=== PATIENT | female | born 1940 | race Caucasian/White ===

== ENCOUNTER → 2017-01-02 | Outpatient (CLI) | payer MEDICARE ==
--- NOTE | 2017-01-02 15:37 | XR ---
EXAMINATION TYPE: XR chest 2V DATE OF EXAM: 01/02/2017 COMPARISON: NONE HISTORY: Pleurodynia per order. Shortness of breath and back pain. TECHNIQUE: Frontal and lateral views of the chest are obtained. FINDINGS: There is no focal air space opacity, pleural effusion, or pneumothorax seen. The cardiac silhouette size is enlarged. Degenerative change left shoulder is present.. Cholecystectomy clips are noted. IMPRESSION: Cardiomegaly without acute pulmonary process.
== END | disposition home or self-care (01) ==
LOC: RADXRMAIN 15:05
PROVIDERS: ATTEND Physician Assistant
DX: I51.7 Cardiomegaly (principal); R07.81 Pleurodynia
CPT/HCPCS: 71020

== ENCOUNTER → 2017-08-27 | Outpatient (CLI) | payer MEDICARE ==
--- NOTE | 2017-09-10 08:10 | MM ---
Reason for exam: history of breast cancer, conservation therapy. History: Patient is postmenopausal and has history of breast cancer at age 65. Lumpectomy of the left breast, 2009. Lumpectomy of the left breast, 2005. Took hormonal contraceptives for 2 years. Took estrogen for 20 years beginning at age 42. Physical Findings: Nurse did not find any significant physical abnormalities on exam. MG 3D Diag Mammo W/Cad KERRI Bilateral CC and MLO view(s) were taken. No prior studies available for comparison. The breast tissue is heterogeneously dense. This may lower the sensitivity of mammography. Right 9-10 o'clock focal asymmetry anterior to middle depth. Ovoid focal asymmetry 2 o'clock posteriorly. Post surgical and post therapy changes in the left breast. These results were verbally communicated on 09/10/17. ASSESSMENT: Incomplete: need additional imaging evaluation, BI-RAD 0 RECOMMENDATION: Special view mammogram of the right breast.
== END | disposition home or self-care (01) ==
LOC: RADMAMWWP 14:08
PROVIDERS: ATTEND Family Medicine
DX: Z08 Encounter for follow-up examination after completed treatment for malignant neoplasm (principal); Z85.3 Personal history of malignant neoplasm of breast
CPT/HCPCS: 77066; G0279; 77062

== ENCOUNTER → 2017-09-18 | Outpatient (CLI) | payer MEDICARE ==
--- NOTE | 2017-09-19 08:19 | MM ---
Reason for exam: additional evaluation requested from abnormal screening. Last mammogram was performed 1 month ago. History: Patient is postmenopausal and has history of breast cancer at age 65. Lumpectomy of the left breast, 2008. Lumpectomy of the left breast, 2005. Took hormonal contraceptives for 2 years. Took estrogen for 20 years beginning at age 42. Physical Findings: Nurse did not find any significant physical abnormalities on exam. MG 3D Work Up W/Cad RT Spot compression CC, spot compression MLO, and ML view(s) were taken of the right breast. Prior study comparison: August 27, 2017, bilateral MG 3d diag mammo w/cad KERRI. The breast tissue is heterogeneously dense. This may lower the sensitivity of mammography. Finding: There is a 7 mm circumscribed oval mass in the upper outer quadrant, anterior middle position of the right breast. These results were verbally communicated with the patient and result sheet given to the patient on 09/18/17. ASSESSMENT: Incomplete: need additional imaging evaluation, BI-RAD 0 RECOMMENDATION: Ultrasound of the right breast.
--- NOTE | 2017-09-19 08:21 | USB ---
Reason for exam: additional evaluation requested from abnormal screening. History: Patient is postmenopausal and has history of breast cancer at age 65. Lumpectomy of the left breast, 2008. Lumpectomy of the left breast, 2005. Took hormonal contraceptives for 2 years. Took estrogen for 20 years beginning at age 42. US Breast Workup Limited RT Right limited breast ultrasound including focal area of concern, retroareolar and axilla demonstrates a 0.7 x 0.9 x 0.3cm oval, cystic cluster at 8 o'clock and a 0.6 x 0.3 x 0.4cm oval, mixed lesion at 9 o'clock. These results were verbally communicated with the patient and result sheet given to the patient on 09/18/17. ASSESSMENT: Probably benign, BI-RAD 3 RECOMMENDATION: Follow-up diagnostic mammogram and ultrasound of the right breast in 6 months.
== END | disposition home or self-care (01) ==
LOC: RADMAMWWP 13:43
PROVIDERS: ATTEND Family Medicine
DX: R92.8 Other abnormal and inconclusive findings on diagnostic imaging of breast (principal)
CPT/HCPCS: 77065; 76642; G0279; 77061

== ENCOUNTER 2017-10-01 06:44 | Day surgery (SDC) | payer MEDICARE ==
[2017-09-12 14:30] VITALS: BMI 37.8
[~2017-10-01 06:44] MED LIST: DEXAMETHASONE SOD PHOSPHATE 10 MG/ML 1 ML VIAL IV ONE; LACTATED RINGERS 1,000 ML IV SCH; ONDANSETRON 4 MG/2 ML VIAL IVP ONE; Pre Op ABX Message 1 EACH MISC MISCELLANE ONE
[2017-10-01] MEDS ORDERED: ceFAZolin IN SWFI 2 GM/20 ML SYRINGE IVP STA (07:25)
[2017-10-01] MEDS ORDERED: fentaNYL (PF) 50 MCG/ML 2 ML AMP ONE (07:40)
[2017-10-01] MEDS ORDERED: MIDAZOLAM 2 MG/2 ML VIAL ONE (07:40)
[2017-10-01] MEDS ORDERED: SUCCINYLCHOLINE CHLORIDE 100 MG/5 ML SYR IV ONE (07:40)
[2017-10-01] MEDS ORDERED: PROPOFOL 10 MG/ML 20 ML VIAL IV ONE (07:40)
[2017-10-01] MEDS ORDERED: LIDOCAINE 1% INJ 10MG/ML (20 ML MDV) ONE (07:40)
[2017-10-01] MEDS ORDERED: SODIUM CHLORIDE 0.9% 50 ML with ceFAZolin 2,000 MG IV ONE ×2 (07:51)
[2017-10-01 09:15] VITALS: TEMP 97
[2017-10-01] MEDS: HYDROmorphone 0.5 MG/0.5 ML SYRINGE IVP PRN ×3 (09:17→09:41)
[2017-10-01 09:44] VITALS: RESP 16
[2017-10-01 10:49] VITALS: PULSE 58
[2017-10-01 11:29] VITALS: BP 137/78
--- NOTE | 2017-10-01 16:13 | OP ---
OPERATIVE REPORT DATE OF SURGERY: October 01, 2017. SURGEON: Timbo Aparicio. PREOPERATIVE DIAGNOSES: 1. Acquired deformity, left breast. 2. Personal history of breast cancer, left breast. 3. Personal history of partial mastectomy, left breast. POSTOPERATIVE DIAGNOSES: 1. Acquired deformity, left breast. 2. Personal history of breast cancer, left breast. 3. Personal history of partial mastectomy, left breast. OPERATIVE PROCEDURE: 1. Delayed reconstruction left breast with insertion of tissue kingsbury machine operator, subsequent outpatient expansion. 2. Implantation of reconstructive graft for left breast reconstruction. OPERATIVE INDICATIONS: Patient is a 77-year-old female who has undergone a partial mastectomy, axillary node dissection and radiation therapy for treatment of left breast cancer. The patient has been dissatisfied with her post treatment result due to the significant deformity she sustained involving the left breast with contour irregularities and significant loss of volume compared to the contralateral side. She is referred to my care for breast reconstruction and has elected to proceed with the tissue kingsbury machine operator technique. The patient understands the potential risks and complications related to the surgery including concerns about wound healing related to her past radiation treatments. She has requested I proceed with the surgery. OPERATIVE PROCEDURE SUMMARY: The patient is seen presurgical area markings made. Procedure reviewed. All questions answered. She was transported to the operating room where she was placed in supine position. Following induction general tracheal anesthesia, the patient is prepped and draped in the usual fashion. The patient's left-sided partial mastectomy scar was identified and marked and was oriented transversely. The incision was then made following diagram placed, dividing skin full-thickness fashion followed by use of cauterization of subcutaneous tissue until identifying the pectorals major muscle surface. Skin subcutaneous tissue and breast parenchyma flaps were dissected off the pectorals major muscle, small amount to identify the muscle fibers direction of their travel. The incision is made through the pectorals major muscle fibers at this point in the inner diagonal direction to gain access to the deep space between the pectorals major and minor muscles which was bluntly developed to a degree and also dissected with cauterization. A large component muscle flap was now elevated consisting of pectorals major muscle, the rectus abdominis muscle, external abdominal oblique muscle and serrated anterior muscle. This flap was dissected with cautery. Once sufficiently sized, the site was irrigated. Hemostasis maintained with cautery. Measurement was obtained. Gloves now changed and the tissue kingsbury machine operator opened on the field from the [employer]. [id number], serial #[id number]. The kingsbury machine operator was rated for 375 mL in volume. All air is extracted, 50 mL 0.9 normal saline instilled is inserted in the reconstructive cavity under direct vision and orientation also assured under direct vision. Additional 50 mL 0.9 normal saline instilled into the device. This optimally filled the space. The muscle flap tissue could not be directly reapproximated due to tension. Therefore SurgiMend reconstructive graft was opened on the field. The SurgiMend measured 10 x 15 cm was thin and fenestrated. Once we vitalized in room temperature saline, the SurgiMend was then inserted in reconstructive field, placed deep to the muscle flap tissue but superficial to the kingsbury machine operator and sutured in place to the muscle flap tissue using interrupted 3-0 Vicryl sutures. Complete coverage of the kingsbury machine operator was now obtained. Irrigation was performed. A 15 round drain inserted in the surgical field above the muscle flap and SurgiMend tissue and brought separate stab incision left anterior lateral chest wall. Drain sutured in place with 2-0 Prolene and cut to appropriate length. The incision was now closed approximating the deep dermis using inverted interrupted 4-0 Monocryl followed by closures of the skin in a single layer using interrupted mackenzie. Surgical sanz is cleansed with saline, dried and postop bandages placed using 4x4s, secured with 3-0 Medipore tape. The drain was connected to close bulb suction patent. The patient is awakened from anesthetic, extubated, and transferred to the recovery room in good condition. Stable vital signs. There were no complications. ESTIMATED BLOOD LOSS: 25 mL MMODL / IJN: [id number] /
== END 2017-10-01 13:00 | disposition home or self-care (01) ==
LOC: OR 06:44
PROVIDERS: ATTEND Plastic Surgery
DX: Z42.1 Encounter for breast reconstruction following mastectomy (principal); N64.89 Other specified disorders of breast; Z85.3 Personal history of malignant neoplasm of breast; Z90.12 Acquired absence of left breast and nipple; Z92.3 Personal history of irradiation; K21.9 Gastro-esophageal reflux disease without esophagitis; I10 Essential (primary) hypertension; M79.7 Fibromyalgia; Z96.641 Presence of right artificial hip joint; Z79.899 Other long term (current) drug therapy; Z88.1 Allergy status to other antibiotic agents; Z91.048 Other nonmedicinal substance allergy status; Z87.891 Personal history of nicotine dependence
CPT/HCPCS: 19357; 15777; C1763; J2250; J2405; J2001; J3010; J0690 ×2; J0330; J2704; J1170

== ENCOUNTER → 2017-11-21 | Outpatient (CLI) | payer MEDICARE ==
--- NOTE | 2017-11-21 17:00 | XR ---
EXAMINATION TYPE: XR chest 2V DATE OF EXAM: 11/21/2017 COMPARISON: 01/02/2017 HISTORY: 77-year-old female shortness of breath, fatigue TECHNIQUE: Frontal and lateral views FINDINGS: Heart upper limits of normal in size. Mild elongation thoracic aorta. No consolidation or pleural eff usion. A left breast device is present. IMPRESSION: Left breast device. No acute cardiopulmonary process.
== END | disposition home or self-care (01) ==
LOC: RADXRMAIN 13:16
PROVIDERS: ATTEND Physician Assistant
DX: R53.83 Other fatigue (principal)
CPT/HCPCS: 71046

== ENCOUNTER 2017-12-20 18:53 | Emergency (ER) | payer MEDICARE ==
--- NOTE | 2017-12-20 18:45 | US ---
EXAMINATION TYPE: US venous doppler duplex LE DATE OF EXAM: 12/20/2017 6:34 PM COMPARISON: NONE CLINICAL HISTORY: R60.0 Edema. bilat edema, worse on the left SIDE PERFORMED: Bilateral TECHNIQUE: The lower extremity deep venous system is examined utilizing real time linear array sonog heraclio with graded compression, doppler sonography and color-flow sonography. VESSELS IMAGED: External Iliac Vein (EIV) Common Femoral Vein Deep Femoral Vein Greater Saphenous Vein * Femoral Vein Popliteal Vein Small Saphenous Vein * Proximal Calf Veins (* superficial vessels) Right Leg: Appears negative for DVT Left Leg: Popiteal vein does not fully compress and minimal flow seen around internal debris along w ith calf veins office is closed with no emergency option on their voice mail IMPRESSION: No evidence of deep venous thrombosis in the right leg. 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
[2017-12-20 20:43] VITALS: RESP 16
[2017-12-20] MEDS ORDERED: cloNIDine HCL 0.2 MG TAB PO STA (20:43)
[2017-12-20] MEDS ORDERED: APIXABAN 5 MG TAB PO STA (20:43)
--- NOTE | 2017-12-20 20:48 | ED ---
General Adult HPI - General Chief complaint: Extremity Injury, Lower Stated complaint: POSS BLOODCLOT LEFT LEG Time Seen by Provider: 12/20/17 20:42 Source: patient, RN notes reviewed, old records reviewed Mode of arrival: ambulatory Limitations: no limitations - History of Present Illness Initial comments: This is a 77-year-old female the ER for evaluation. Patient sent to ER for evaluation of outpatient ultrasound. Patient recent long travel history following surgery. She is complaining of left leg pain, per ultrasound and radiology patient does have positive DVT. Patient has no prior history of DVT, denies chest pain or shortness of breath. No other injuries noted - Related Data Home Medications Medication Instructions Recorded Confirmed Metoprolol Tartrate [Lopressor] 100 mg PO HS 09/12/17 12/20/17 Cholecalciferol (Vitamin D3) 2,000 unit PO HS 12/20/17 12/20/17 [Vitamin D3] Zolpidem [Ambien] 10 mg PO HS 12/20/17 12/20/17 Previous Rx's Medication Instructions Recorded Apixaban [Eliquis] 5 mg PO BID #28 tab 12/20/17 Apixaban [Eliquis] 5 mg PO BID #60 tablet 12/20/17 Allergies Allergy/AdvReac Type Severity Reaction Status Date / Time adhesive tape AdvReac Unknown Red Verified 12/20/17 19:42 Irritated Skin clindamycin AdvReac Unknown HEART BURN Verified 12/20/17 19:42 erythromycin base AdvReac Unknown HEART BURN Verified 12/20/17 19:42 Review of Systems ROS Statement: Those systems with pertinent positive or pertinent negative responses have been documented in the HPI. ROS Other: All systems not noted in ROS Statement are negative. Past Medical History Past Medical History: Cancer, Hypertension, Osteoarthritis (OA) Additional Past Medical History / Comment(s): HX OF STONE IN PANCREAS, ARTHRITIS WITH BACK PAIN, BREAST CANCER (2008 WITH PARTIAL MASTECTOMY & RADIATION [place]), STRESS INCONTINENCE- WEARS PADS., SURGERY WAS RESCHEDULED DUE TO CARDIAC CLEARANCE NEEDED. History of Any Multi-Drug Resistant Organisms: None Reported Past Surgical History: Breast Surgery, Cholecystectomy, Joint Replacement Additional Past Surgical History / Comment(s): LUMPECTOMY X2, PARTIAL LEFT MASTECTOMY, RIGHT TOTAL HIP. Past Anesthesia/Blood Transfusion Reactions: Previous Problems w/ Anesthesia Additional Past Anesthesia/Blood Transfusion Reaction / Comment(s): STATES BLOOD PRESSURE LOW AFTER HIP SURGERY. Past Psychological History: No Psychological Hx Reported Smoking Status: Former smoker Past Alcohol Use History: Occasional Past Drug Use History: None Reported - Past Family History Mother Family Medical History: Cancer Additional Family Medical History / Comment(s): LUNG CANCER General Exam - General Exam Comments Initial Comments: (Extremity with edema and tenderness Limitations: no limitations General appearance: alert, in no apparent distress Head exam: Present: atraumatic, normocephalic, normal inspection Eye exam: Present: normal appearance, PERRL, EOMI. Absent: scleral icterus, conjunctival injection, periorbital swelling ENT exam: Present: normal exam, mucous membranes moist Neck exam: Present: normal inspection. Absent: tenderness, meningismus, lymphadenopathy Respiratory exam: Present: normal lung sounds bilaterally. Absent: respiratory distress, wheezes, rales, rhonchi, stridor Cardiovascular Exam: Present: regular rate, normal rhythm, normal heart sounds. Absent: systolic murmur, diastolic murmur, rubs, gallop, clicks GI/Abdominal exam: Present: soft, normal bowel sounds. Absent: distended, tenderness, guarding, rebound, rigid Extremities exam: Present: normal inspection, full ROM, normal capillary refill. Absent: tenderness, pedal edema, joint swelling, calf tenderness Back exam: Present: normal inspection Neurological exam: Present: alert, oriented X3, CN II-XII intact Psychiatric exam: Present: normal affect, normal mood Skin exam: Present: warm, dry, intact, normal color. Absent: rash Course Vital Signs 12/20/17 12/20/17 12/20/17 18:55 20:39 22:01 Temperature 98.5 F 97.6 F Pulse Rate 61 63 65 Respiratory 18 16 16 Rate Blood Pressure 181/99 202/98 198/88 O2 Sat by Pulse 95 98 97 Oximetry - Reevaluation(s) Reevaluation #1: Patient denies any chest pain or shortness of breath, medical record is reviewed ultrasound is reviewed showing positive DVT Medical Decision Making - Medical Decision Making 77 female the ER for positive DVT. Patient placed on oral anticoagulation and will be discharged to follow-up with primary care - Radiology Data Radiology results: report reviewed (Ultrasound positive for DVT), image reviewed Disposition Clinical Impression: DVT (deep venous thrombosis), Hypertension Disposition: HOME SELF-CARE Condition: Good Instructions: Deep Vein Thrombosis (ED) Prescriptions: Apixaban [Eliquis] 5 mg PO BID #28 tab Apixaban [Eliquis] 5 mg PO BID #60 tablet Is patient prescribed a controlled substance at d/c from ED?: No Referrals: Betito Deleon MD [Primary Care Provider] - 1-2 days
[2017-12-20 22:03] VITALS: BP 198/88; PULSE 65; TEMP 97.6
== END 2017-12-20 22:00 | disposition home or self-care (01) ==
LOC: EC 18:53
DX: I82.532 Chronic embolism and thrombosis of left popliteal vein (principal); I10 Essential (primary) hypertension; Z96.641 Presence of right artificial hip joint; Z87.891 Personal history of nicotine dependence; Z79.899 Other long term (current) drug therapy; Z91.048 Other nonmedicinal substance allergy status; Z88.1 Allergy status to other antibiotic agents; Z85.3 Personal history of malignant neoplasm of breast
CPT/HCPCS: 93970; 99284

== ENCOUNTER → 2018-01-02 | Outpatient (CLI) | payer MEDICARE ==
--- NOTE | 2018-01-02 14:10 | US ---
EXAMINATION TYPE: US venous doppler duplex LE BI DATE OF EXAM: 01/02/2018 1:44 PM COMPARISON: Prior bilateral venous ultrasound March 21, 2018 CLINICAL HISTORY: R60.0 Edema of Lower Ext. Leg swelling, prev DVT left leg, pt on blood thinners SIDE PERFORMED: Bilateral TECHNIQUE: The lower extremity deep venous system is examined utilizing real time linear array sonog heraclio with graded compression, doppler sonography and color-flow sonography. VESSELS IMAGED: External Iliac Vein (EIV) Common Femoral Vein Deep Femoral Vein Greater Saphenous Vein * Femoral Vein Popliteal Vein Small Saphenous Vein * Proximal Calf Veins (* superficial vessels) Right Leg: Negative for DVT Left Leg: Negative for acute DVT, possible small amount of chronic non-occluding thrombus within lef t popliteal vein, improvement from previous Grayscale, color doppler, spectral doppler imaging performed of the deep veins of the bilateral lower extremities. There is normal flow, compressibility, vascular waveforms in the right lower extremity remain present. IMPRESSION: Some residual chronic thrombus left popliteal vein remains present. No new or acute DVT is noted bilaterally.
== END | disposition home or self-care (01) ==
LOC: RADUSWWP 12:59
PROVIDERS: ATTEND Family Medicine
DX: I82.532 Chronic embolism and thrombosis of left popliteal vein (principal)
CPT/HCPCS: 93970

== ENCOUNTER → 2018-03-20 | Outpatient (CLI) | payer MEDICARE ==
--- NOTE | 2018-03-20 14:31 | US ---
EXAMINATION TYPE: US venous doppler duplex LE LT DATE OF EXAM: 03/20/2018 2:15 PM COMPARISON: US 2018 CLINICAL HISTORY: I82.409 DVT. History of left leg DVT 3 months ago, patient on blood thinners SIDE PERFORMED: Left TECHNIQUE: The lower extremity deep venous system is examined utilizing real time linear array sonog heraclio with graded compression, doppler sonography and color-flow sonography. VESSELS IMAGED: External Iliac Vein (EIV) Common Femoral Vein Deep Femoral Vein Greater Saphenous Vein * Femoral Vein Popliteal Vein Small Saphenous Vein * Proximal Calf Veins (* superficial vessels) Left Leg: Appears negative for DVT IMPRESSION: No evidence for DVT at this time.
== END ==
LOC: RADUSWWP 13:55
PROVIDERS: ATTEND Family Medicine
DX: I82.409 Acute embolism and thrombosis of unspecified deep veins of unspecified lower extremity (principal)

== ENCOUNTER 2018-08-12 09:17 | Day surgery (SDC) | payer MEDICARE ==
[2018-08-07 14:49] VITALS: BMI 38.0
[~2018-08-12 09:17] MED LIST changes: +LIDOCAINE 1% 20 ML VIAL (10MG/ML) FOR IV START INTRADERMA PRN; +MIDAZOLAM 2 MG/2 ML VIAL IV PRN; +SCOPOLAMINE 1.5MG/72HR PATCH TRANSDERM ONE
[2018-08-12 10:27] VITALS: RESP 16
[2018-08-12] MEDS ORDERED: ceFAZolin IN SWFI 2 GM/20 ML SYRINGE IVP ONE (10:48)
[2018-08-12] MEDS ORDERED: fentaNYL (PF) 50 MCG/ML 2 ML AMP ONE (11:29)
[2018-08-12] MEDS ORDERED: KETOROLAC 30 MG/ML 1 ML VIAL ONE (11:29)
[2018-08-12] MEDS ORDERED: ePHEDrine SULFATE/0.9% NACL/PF 50 MG/5 ML SYRINGE IV ONE (11:29)
[2018-08-12] MEDS ORDERED: PROPOFOL 10 MG/ML 20 ML VIAL IV ONE (11:29)
[2018-08-12] MEDS ORDERED: MIDAZOLAM 2 MG/2 ML VIAL ONE (11:29)
[2018-08-12] MEDS ORDERED: LIDOCAINE 1% INJ 10MG/ML (20 ML MDV) ONE (11:29)
[2018-08-12] MEDS ORDERED: HYDROmorphone (PF) 1 MG/ML ONE (11:29)
[2018-08-12] MEDS ORDERED: ROCURONIUM BROMIDE 10 MG/ML 10 ML VIAL IV ONE (11:29)
[2018-08-12] MEDS ORDERED: LACTATED RINGERS 1,000 ML IV ONE (12:57)
[2018-08-12 13:05] VITALS: TEMP 97
[2018-08-12] MEDS: HYDROmorphone 0.5 MG/0.5 ML SYRINGE IVP PRN ×2 (13:15→13:32)
[2018-08-12 14:53] VITALS: BP 123/84; PULSE 61
--- NOTE | 2018-08-12 19:57 | OP ---
OPERATIVE REPORT DATE OF SURGERY: 08/12/2018. SURGEON: Dr. Timbo Aparicio PREOPERATIVE DIAGNOSES: 1. Acquired deformity, left reconstructed breast. 2. Acquired loss, left breast inframammary fold. 3. Personal history of breast cancer, left breast. 4. Personal history of partial mastectomy, left breast. POSTOPERATIVE DIAGNOSES: 1. Acquired deformity, left reconstructed breast. 2. Acquired loss, left breast inframammary fold. 3. Personal history of breast cancer, left breast. 4. Personal history of partial mastectomy, left breast. OPERATIVE PROCEDURES: 1. Replacement of left breast tissue sausage smoker with silicone breast implant for left breast reconstruction. 2. Revision left reconstructed breast. 3. Reconstruction of left breast inframammary fold via local advancement flap, 42 square cm. 4. Implantation of reconstructive graft for left breast reconstruction. OPERATIVE INDICATIONS: This patient is a 78-year-old female who has undergone partial mastectomy and axillary node dissection and radiation therapy for treatment of breast cancer years ago. The patient developed progressive deformity of the left reconstructed breast and was referred to my care. She was taken to surgery, where a tissue sausage smoker was placed, and completed subsequent outpatient expansion and then traveled to [place] for this past winter. She has subsequently returned from living in [place] and desires to proceed with further reconstructive surgery, left breast, which will include replacement of her tissue sausage smoker and silicone breast implant, revision of the reconstructed breast due to significant scar deformity and contour irregularities distorting the shape of the breast as well as reconstruction of loss of the left inframammary fold. She understands there are potential risks and complications with the surgery and that outcomes cannot be guaranteed, and she may require future surgery. She has requested I perform the surgery. OPERATIVE PROCEDURE SUMMARY: The patient was seen in the presurgical area, markings made, procedure reviewed, all questions answered. She was transported to the operating room, where she was placed in supine position. Following induction of general endotracheal anesthesia, the patient was prepped and draped in usual fashion. The left breast scar had significant distortion of the breast and was marked where the prior mastectomy incision had been made. The incision was then made with a 10 blade scalpel dividing skin in full- thickness fashion followed by the use of cauterization to divide subcutaneous tissue, identifying the muscle flap layer underneath, and this area of the layer was attenuating quite thin. It was not possible to separate this layer from the patient's subcutaneous tissue layer. Therefore, incision was made through this layer exposing the sausage smoker. The sausage smoker was removed intact. The expansion cavity appeared normal, with serous fluid. No granulation tissue. No exudates. The expansion capsular scar was thick and hypertrophic along the inferolateral, lateral and superior portions, less so along the anteromedial and inferomedial regions. The capsular scar was divided where the capsule joined the chest wall circumferentially, and then multiple cruciate incisions were made through the capsular structure anteriorly, medially, superiorly and laterally and also inferolaterally through the inferior capsulotomy scar. Skin and subcutaneous tissue flap was developed for reconstruction of the inframammary fold. This flap measured 21 x 2 cm2. Once created, the flap was advanced in cephalad fashion and secured to the chest wall using several interrupted 2-0 Vicryl sutures to create a discrete inframammary fold in a symmetrical location to the patient's right side. Additional dissection was required in the area where the muscle flap could not be readily from the skin layer to further divide the scar tissue in a cruciate fashion to release the tightness of the structure so it could not re-form in the same manner. Once this was completed, irrigation was performed using a pulsatile irrigation unit of several liters of fluid. Hemostasis was maintained with cautery. Several temporary breast implant sizers were inserted in the reconstructive cavity and evaluated with the patient in a seated-up position. Ultimately a 325 mL breast implant sizer appeared best. The sizer was removed. Cavities were irrigated. Hemostasis was excellent. It was clear that reconstructive graft material would be required to optimize the patient's reconstruction due to the attenuation of the muscle flap that had been divided, as described previously. SurgiMend measuring 10 x 15 cm, thin and fenestrated, was opened on the field and revitalized in room-temperature saline. The SurgiMend was sutured in a modified inferolateral sling location, securing just to the cephalad portion of the advanced inframammary fold flap and also to the patient's chest wall to provide an inferolateral sling. Gloves were changed. Breast implant was opened on the field from the [employer], reference #[id number], serial #[id number]. Device measured 325 mL, moderate plus profile. The device was only handled by the surgeon. I first irrigated it with saline, then inserted it directly into the reconstructive cavity. The SurgiMend was then advanced over the implant once in optimal position and the SurgiMend was then inset to the muscle flap tissue using interrupted 3-0 Vicryl sutures. Complete coverage of the implant was obtained. The skin incision was now closed approximating the deep dermis using inverted interrupted 4- 0 Monocryl followed by closure of superficial dermis and epidermis with running 5-0 Prolene. Surgical field was cleansed with saline and dried. Postoperative bandages were placed using sterile one-inch paper tape over suture repair, Kerlix squares followed by size 4 mammary support. The estimated blood loss was 25 mL. The patient was extubated in the operating room and transferred to the recovery room in good condition with stable vital signs. MMODL / IJN: [id number] /
== END 2018-08-12 16:32 | disposition home or self-care (01) ==
LOC: OR 09:17
PROVIDERS: ATTEND Plastic Surgery
DX: Z42.1 Encounter for breast reconstruction following mastectomy (principal); N65.0 Deformity of reconstructed breast; Z85.3 Personal history of malignant neoplasm of breast; Z90.12 Acquired absence of left breast and nipple; M19.90 Unspecified osteoarthritis, unspecified site; M79.7 Fibromyalgia; I10 Essential (primary) hypertension; K21.9 Gastro-esophageal reflux disease without esophagitis; Z79.899 Other long term (current) drug therapy; Z88.1 Allergy status to other antibiotic agents; Z91.048 Other nonmedicinal substance allergy status; Z90.710 Acquired absence of both cervix and uterus; Z87.891 Personal history of nicotine dependence
CPT/HCPCS: 84132; 19342; 14301; 15777; C1763; C1789; J2250; J1100; J2405; J2001; J3010; J1885; J1170 ×2; J2704; J0690

== ENCOUNTER 2018-09-01 23:28 | Emergency (ER) | payer MEDICARE ==
[2018-09-01 23:52] VITALS: BP 129/93; PULSE 67; RESP 17; TEMP 98.4
--- NOTE | 2018-09-02 01:39 | US ---
EXAM: US Duplex Right Lower Extremity Veins CLINICAL HISTORY: ITS.REASON US Reason: Pain/ swelling TECHNIQUE: Real-time duplex ultrasound scan of the right lower extremity veins integrating B-mode two-dimensional vascular structure, Doppler spectral analysis, color flow Doppler imaging and compression. COMPARISON: No relevant prior studies available. FINDINGS: Deep veins: No DVT in the visualized common femoral, femoral, proximal deep femoral or popliteal veins. The veins demonstrate normal color flow, are normally compressible, with normal phasic flow and/or augmentation response. Superficial veins: No thrombus in the visualized great saphenous vein. Soft tissues: No popliteal cyst. IMPRESSION: No DVT.
--- NOTE | 2018-09-02 02:21 | ED ---
Lower Extremity Injury HPI - General Source: patient Mode of arrival: ambulatory Limitations: no limitations <Shira Pineda - Last Filed: 09/02/18 04:04> <Lyubov Lewis - Last Filed: 09/02/18 06:19> - General Chief Complaint: Extremity Injury, Lower Stated Complaint: Rt foot swelling/pain, post op Time Seen by Provider: 09/02/18 01:36 - History of Present Illness Initial Comments: 78-year-old female patient who recently underwent bilateral mastectomy presents to the emergency department today for evaluation of right ankle and foot swelling and pain. Patient states this started earlier today. States she has increased pain with ambulation. States the pain is located along the right lateral foot. She denies any calf pain or tenderness. States she does have a history of DVT and is concerned she may have a blood clot. She did start Eliquis on Saturday. She denies any fever or chills. Denies any numbness or tingling to the foot. Denies any known injury. Patient denies any headache, neck pain, back pain, chest pain, shortness of breath, dizziness, weakness, abdominal pain, nausea, vomiting, or difficulties with bowel movements or urination. (Shira Pineda) - Related Data Home Medications Medication Instructions Recorded Confirmed Metoprolol Tartrate [Lopressor] 100 mg PO DAILY 09/12/17 08/12/18 Cholecalciferol (Vitamin D3) 2,000 unit PO DAILY 12/20/17 08/12/18 [Vitamin D3] ALPRAZolam [Xanax] 0.5 mg PO HS 08/07/18 08/12/18 Amoxicillin 875 mg PO Q12HR 08/07/18 08/12/18 Hydrochlorothiazide 25 mg PO DAILY 08/07/18 08/12/18 Lisinopril [Zestril] 20 mg PO DAILY 08/07/18 08/12/18 Previous Rx's Medication Instructions Recorded Hydrocodone/Acetaminophen [[place] 1 tab PO Q4H PRN 7 Days #42 tab NS 08/12/18 5-325] MDD 6 Cephalexin [Keflex] 500 mg PO Q6HR #40 cap 09/02/18 Allergies Allergy/AdvReac Type Severity Reaction Status Date / Time adhesive tape AdvReac Unknown Red Verified 09/01/18 23:52 Irritated Skin clindamycin AdvReac Unknown HEART BURN Verified 09/01/18 23:52 erythromycin base AdvReac Unknown HEART BURN Verified 09/01/18 23:52 Review of Systems ROS Other: All systems not noted in ROS Statement are negative. <Shira Pineda M - Last Filed: 09/02/18 04:04> ROS Other: All systems not noted in ROS Statement are negative. <Lyubov Lewis - Last Filed: 09/02/18 06:19> ROS Statement: Those systems with pertinent positive or pertinent negative responses have been documented in the HPI. Past Medical History Past Medical History: Cancer, Deep Vein Thrombosis (DVT), Hyperlipidemia, Hypertension, Osteoarthritis (OA) Additional Past Medical History / Comment(s): HX OF STONE IN PANCREAS, ARTHRITIS WITH BACK PAIN, left BREAST CANCER (2008 WITH PARTIAL MASTECTOMY & RADIATION [place]), STRESS INCONTINENCE- WEARS PADS.,occ irregular heart rate, History of Any Multi-Drug Resistant Organisms: None Reported Past Surgical History: Breast Surgery, Cholecystectomy, Joint Replacement, Tubal Ligation Additional Past Surgical History / Comment(s): LUMPECTOMY X2, PARTIAL LEFT MASTECTOMY, Rt hip replacement, D&C's, rt cataract, reconstruction of breast , Past Anesthesia/Blood Transfusion Reactions: Previous Problems w/ Anesthesia Additional Past Anesthesia/Blood Transfusion Reaction / Comment(s): STATES BLOOD PRESSURE LOW IN RECOVERY ROOM AFTER HIP SURGERY. Past Psychological History: Anxiety Smoking Status: Former smoker - Past Family History Mother Family Medical History: Cancer Additional Family Medical History / Comment(s): LUNG CANCER Daughter(s) Family Medical History: Pulmonary Embolus <Shira Pineda M - Last Filed: 09/02/18 04:04> General Exam Limitations: no limitations General appearance: alert, in no apparent distress, other (Physical well- developed, well-nourished elderly female patient in no acute distress. Vital signs upon presentation are temperature 98.4F, pulse 67, respirations 17, blood pressure 129/93, pulse ox 97% on room air.) Eye exam: Present: normal appearance, PERRL, EOMI. Absent: scleral icterus, conjunctival injection, periorbital swelling ENT exam: Present: normal exam, normal oropharynx, mucous membranes moist Respiratory exam: Present: normal lung sounds bilaterally. Absent: respiratory distress, wheezes, rales, rhonchi, stridor Cardiovascular Exam: Present: regular rate, normal rhythm, normal heart sounds. Absent: systolic murmur, diastolic murmur, rubs, gallop, clicks GI/Abdominal exam: Present: soft, normal bowel sounds. Absent: distended, tenderness, guarding, rebound, rigid Extremities exam: Present: full ROM, normal capillary refill, other (There is erythema noted along the right lateral aspect of the dorsal foot. There is tenderness over this area. There is slightly increased warmth to the area. There is general nonpitting edema to the foot and ankle Skin is otherwise pink, warm, dry. Cap refills less than 3 seconds. Pedal and posttibial pulses are 2+ and equal bilaterally.). Absent: normal inspection, tenderness, pedal edema, joint swelling, calf tenderness Neurological exam: Present: alert, oriented X3, CN II-XII intact Psychiatric exam: Present: normal affect, normal mood Skin exam: Present: warm, dry, intact, normal color. Absent: rash <Shira Pineda - Last Filed: 09/02/18 04:04> Course Vital Signs 09/01/18 23:47 Temperature 98.4 F Pulse Rate 67 Respiratory 17 Rate Blood Pressure 129/93 O2 Sat by Pulse 97 Oximetry Medical Decision Making - Radiology Data Radiology results: report reviewed, image reviewed <Shira Pineda - Last Filed: 09/02/18 04:04> <Lyubov Lewis - Last Filed: 09/02/18 06:19> - Medical Decision Making 78-year-old female patient presented to the emergency department today for evaluation of right lateral foot pain. Physical examination did reveal some erythema along the right lateral foot. Some swelling around the foot and ankle. Neurovascular status is intact. Ultrasound of the right lower extremity was obtained and showed no evidence for DVT. X-ray of the right foot was obtained and showed no acute osseous abnormalities. Given evidence of erythema there is concern for cellulitis we will treat with Keflex. Patient is instructed to follow-up with her primary care physician for recheck in 1-2 days. Return parameters discussed in detail. She verbalizes understanding and agrees with this plan. (Shira Pineda) I was available for consultation in the emergency department. The history and physical exam were done by the Midlevel Provider. Medical decision making was done by the Midlevel Provider. I have reviewed the chart, however was not consulted specifically or made aware of this patient by the above midlevel provider and did not personally evaluate, interact with, or disposition this patient on the day of their visit Chart was dictated using [employer] dictation software. Attempts were made to correct any dictation errors however some typographical errors may persist. (Lyubov Lewis) - Radiology Data Venous Doppler duplex of the right lower trauma he was obtained. Report was reviewed in its entirety. Impression by Dr. Arriola shows no DVT. 3 views of the right foot are obtained. Report was reviewed in its entirety. Impression by Dr. Arriola shows no acute findings. (Shira Pineda) Disposition Is patient prescribed a controlled substance at d/c from ED?: No Time of Disposition: 02:46 <Shira Pineda - Last Filed: 09/02/18 04:04> <Lyubov Lewis - Last Filed: 09/02/18 06:19> Clinical Impression: Cellulitis of right foot Disposition: HOME SELF-CARE Condition: Good Instructions (If sedation given, give patient instructions): Cellulitis (ED) Additional Instructions: Rest, ice, elevate the foot. Complete and back prescription and full. Follow- up with your primary care physician for repeat x-rays in 7-10 days if pain symptoms persist. Return to the emergency department immediately for any new, worsening, or concerning symptoms. Prescriptions: Cephalexin [Keflex] 500 mg PO Q6HR #40 cap Referrals: Betito Deleon MD [Primary Care Provider] - 1-2 days
--- NOTE | 2018-09-02 02:41 | XR ---
EXAM: XR Right Foot Complete, 3 or More Views CLINICAL HISTORY: ITS.REASON XR Reason: Pain TECHNIQUE: Frontal, lateral and oblique views of the right foot. COMPARISON: No relevant prior studies available. FINDINGS: Bones/joints: No acute fracture. No dislocation. Mild degenerative changes of the midfoot. Soft tissues: Unremarkable. No radiopaque foreign body. IMPRESSION: No acute findings.
[2018-09-02] MEDS ORDERED: CEPHALEXIN 500MG STARTER PACK 4 CAP BTL PO STA (02:47)
== END 2018-09-02 03:00 | disposition home or self-care (01) ==
LOC: EC 23:28
DX: L03.115 Cellulitis of right lower limb (principal); I10 Essential (primary) hypertension; F41.9 Anxiety disorder, unspecified; M19.90 Unspecified osteoarthritis, unspecified site; Z79.899 Other long term (current) drug therapy; Z88.1 Allergy status to other antibiotic agents; Z91.048 Other nonmedicinal substance allergy status; Z87.891 Personal history of nicotine dependence; Z86.718 Personal history of other venous thrombosis and embolism; Z96.641 Presence of right artificial hip joint; Z85.3 Personal history of malignant neoplasm of breast; Z90.13 Acquired absence of bilateral breasts and nipples
CPT/HCPCS: 99284

== ENCOUNTER 2020-10-02 13:45 | Emergency (ER) | payer MEDICARE ==
[2020-10-02 14:25] VITALS: RESP 18
[2020-10-02 14:26] VITALS: TEMP 99
[2020-10-02] MEDS ORDERED: SODIUM CHLORIDE 0.9% 1,000 ML IV STA (14:33)
[2020-10-02 15:00] LABS: Basophils % (A) 0 %; Eosinophils % (A) 0 %; HCT 39.7 % (34.0-46.0); HGB 13.2 gm/dL (11.4-16.0); Lymphocytes # (A) 1.3 k/uL (1.0-4.8); Lymphocytes % (A) 21 %; MCH 30.3 pg (25.0-35.0); MCHC 33.1 g/dL (31.0-37.0); MCV 91.5 fL (80.0-100.0); Mean Platelet Volume 8.3; Monocytes # (A) 0.4 k/uL (0-1.0); Monocytes % (A) 6 %; Neutrophils # (A) 4.4 k/uL (1.3-7.7); Neutrophils % (A) 70 %; Platelet Count 136 k/uL (150-450); RBC 4.34 m/uL (3.80-5.40); RDW 13.6 % (11.5-15.5); WBC 6.3 k/uL (3.8-10.6)
[2020-10-02 15:09] LABS: ALT 25 U/L (4-34); AST 58 U/L (14-36); African American GFR (CKD) >90 (>60 ml/min/1.73 sqM); Albumin 3.7 g/dL (3.5-5.0); Alkaline Phosphatase 70 U/L (38-126); Anion Gap 8 mmol/L; Blood Urea Nitrogen 13 mg/dL (7-17); Calcium 8.4 mg/dL (8.4-10.2); Carbon Dioxide 28 mmol/L (22-30); Chloride 100 mmol/L (98-107); Glucose 96 mg/dL (74-99); Magnesium 1.7 mg/dL (1.6-2.3); Non-African American GFR(CKD) 84 (>60 ml/min/1.73 sqM); Potassium 3.3 mmol/L (3.5-5.1); Sodium 136 mmol/L (137-145); Total Bilirubin 0.7 mg/dL (0.2-1.3); Total Protein 6.4 g/dL (6.3-8.2)
[2020-10-02 15:53] LABS: Appearance,Urine Clear (Clear); Bacteria,Urine Rare /hpf; Bilirubin,Urine Negative (Negative); Blood,Urine Negative (Negative); Color,Urine Yellow; Glucose,Urine (UA) Negative (Negative); Ketones,Urine 1+ (Negative); Leukocyte Esterase,Urine Negative (Negative); Mucus,Urine Rare /hpf; Nitrite,Urine Negative (Negative); PH, Urine 5.5 (5.0-8.0); Protein,Urine 1+ (Negative); RBC,Urine 1 /hpf (0-5); Specific Gravity,Urine 1.023 (1.001-1.035); Squamous Epithelial Cell,Urine <1 /hpf (0-4); Urobilinogen,Urine <2.0 mg/dL (<2.0); WBC,Urine 1 /hpf (0-5)
--- NOTE | 2020-10-02 15:59 | ED ---
General Adult HPI - General Chief complaint: Weakness Stated complaint: cough, weakness, diarrhea Time Seen by Provider: 10/02/20 14:11 Source: patient Mode of arrival: wheelchair Limitations: no limitations - History of Present Illness Initial comments: 80-year-old female with a past medical history of breast cancer, DVT, hyperlipidemia, hypertension presents to the emergency room for a chief complaint of not feeling well. Patient reports that on she started to develop a cough and runny nose and felt more weak than normal. Today she star akil to have diarrhea. She reports that she has been under a lot of stress lately as her has recently passed. Her family states that she could be dehydrated which concerned them . The states she is in the middle planning the and do want her checked out and hopefully given fluids and states she feels better. Patient did have the Covid vaccine in April. Patient has no other complaints at this time including shortness of breath, chest pain, abdominal pain, nausea or vomiting, headache, or visual changes. - Related Data Home Medications Medication Instructions Recorded Confirmed Metoprolol Tartrate [Lopressor] 100 mg PO DAILY 09/12/17 08/12/18 Cholecalciferol (Vitamin D3) 2,000 unit PO DAILY 12/20/17 08/12/18 [Vitamin D3] ALPRAZolam [Xanax] 0.5 mg PO HS 08/07/18 08/12/18 RX: Amoxicillin 875 mg PO Q12HR 08/07/18 08/12/18 RX: hydroCHLOROthiazide 25 mg PO DAILY 08/07/18 08/12/18 lisinopriL [Zestril] 20 mg PO DAILY 08/07/18 08/12/18 Previous Rx's Medication Instructions Recorded Hydrocodone/Acetaminophen [[place] 1 tab PO Q4H PRN 7 Days #42 tab NS 08/12/18 5-325] MDD 6 cephALEXin [Keflex] 500 mg PO Q6HR #40 cap 09/02/18 Allergies Allergy/AdvReac Type Severity Reaction Status Date / Time adhesive tape AdvReac Unknown Red Verified 10/02/20 13:52 Irritated Skin clindamycin AdvReac Unknown HEART BURN Verified 10/02/20 13:52 erythromycin base AdvReac Unknown HEART BURN Verified 10/02/20 13:52 Review of Systems ROS Statement: Those systems with pertinent positive or pertinent negative responses have been documented in the HPI. ROS Other: All systems not noted in ROS Statement are negative. Past Medical History Past Medical History: Cancer, Deep Vein Thrombosis (DVT), Hyperlipidemia, Hypertension, Osteoarthritis (OA) Additional Past Medical History / Comment(s): HX OF STONE IN PANCREAS, ARTHRITIS WITH BACK PAIN, left BREAST CANCER (2009 WITH PARTIAL MASTECTOMY & RADIATION [place]), STRESS INCONTINENCE- WEARS PADS.,occ irregular heart rate, History of Any Multi-Drug Resistant Organisms: None Reported Past Surgical History: Breast Surgery, Cholecystectomy, Joint Replacement, Tubal Ligation Additional Past Surgical History / Comment(s): LUMPECTOMY X2, PARTIAL LEFT MASTECTOMY, Rt hip replacement, D&C's, rt cataract, reconstruction of breast , Past Anesthesia/Blood Transfusion Reactions: Previous Problems w/ Anesthesia Additional Past Anesthesia/Blood Transfusion Reaction / Comment(s): STATES BLOOD PRESSURE LOW IN RECOVERY ROOM AFTER HIP SURGERY. Past Psychological History: Anxiety Smoking Status: Former smoker Past Alcohol Use History: Occasional Past Drug Use History: None Reported - Past Family History Mother Family Medical History: Cancer Additional Family Medical History / Comment(s): LUNG CANCER Daughter(s) Family Medical History: Pulmonary Embolus General Exam Limitations: no limitations General appearance: alert, in no apparent distress Head exam: Present: atraumatic, normocephalic, normal inspection Eye exam: Present: normal appearance, PERRL, EOMI. Absent: scleral icterus, conjunctival injection, periorbital swelling ENT exam: Present: normal exam, mucous membranes moist Neck exam: Present: normal inspection. Absent: tenderness, meningismus, lymphadenopathy Respiratory exam: Present: normal lung sounds bilaterally. Absent: respiratory distress, wheezes, rales, rhonchi, stridor Cardiovascular Exam: Present: regular rate, normal rhythm, normal heart sounds. Absent: systolic murmur, diastolic murmur, rubs, gallop, clicks GI/Abdominal exam: Present: soft, normal bowel sounds. Absent: distended, tenderness, guarding, rebound, rigid Course Vital Signs 10/02/20 10/02/20 13:49 14:25 Temperature 98.2 F 99.0 F Pulse Rate 63 55 L Respiratory 16 18 Rate Blood Pressure 132/79 125/87 O2 Sat by Pulse 94 L 95 Oximetry EKG Findings - EKG Comments: EKG Findings:: Sinus bradycardia, ventricular rate 55, MA interval 178, QTC 436 Medical Decision Making - Medical Decision Making Vitals are stable. Patient is well-appearing. EKG shows a sinus bradycardia with a ventricular rate of 55. Patient does have some T-wave inversions, no previous EKG to compare to. However no chest pain or shortness of breath. CBC CMP unremarkable. Urinalysis is unremarkable. Amin virus is detected. Chest x-ray shows no acute cardiopulmonary process. At this time patient was reevaluated and is feeling well. She was given fluids. She did agree to antibody infusion. Patient will be discharged home with strict return parameters. - Lab Data Result diagrams: 10/02/20 14:49 10/02/20 14:49 Lab Results 10/02/20 10/02/20 10/02/20 Range/Units 14:49 14:49 14:49 WBC 6.3 (3.8-10.6) k/uL RBC 4.34 (3.80-5.40) m/uL Hgb 13.2 (11.4-16.0) gm/dL Hct 39.7 (34.0-46.0) % MCV 91.5 (80.0-100.0) fL MCH 30.3 (25.0-35.0) pg MCHC 33.1 (31.0-37.0) g/dL RDW 13.6 (11.5-15.5) % Plt Count 136 L (150-450) k/uL MPV 8.3 Neutrophils % 70 % Lymphocytes % 21 % Monocytes % 6 % Eosinophils % 0 % Basophils % 0 % Neutrophils # 4.4 (1.3-7.7) k/uL Lymphocytes # 1.3 (1.0-4.8) k/uL Monocytes # 0.4 (0-1.0) k/uL Eosinophils # 0.0 (0-0.7) k/uL Basophils # 0.0 (0-0.2) k/uL Sodium 136 L (137-145) mmol/L Potassium 3.3 L (3.5-5.1) mmol/L Chloride 100 (98-107) mmol/L Carbon Dioxide 28 (22-30) mmol/L Anion Gap 8 mmol/L BUN 13 (7-17) mg/dL Creatinine 0.68 (0.52-1.04) mg/dL Est GFR (CKD-EPI)AfAm >90 (>60 ml/min/1.73 sqM) Est GFR (CKD-EPI)NonAf 84 (>60 ml/min/1.73 sqM) Glucose 96 (74-99) mg/dL Plasma Lactic Acid [place] (0.7-2.0) mmol/L Calcium 8.4 (8.4-10.2) mg/dL Magnesium 1.7 (1.6-2.3) mg/dL Total Bilirubin 0.7 (0.2-1.3) mg/dL AST 58 H (14-36) U/L ALT 25 (4-34) U/L Alkaline Phosphatase 70 (38-126) U/L Total Protein 6.4 (6.3-8.2) g/dL Albumin 3.7 (3.5-5.0) g/dL Urine Color Yellow Urine Appearance Clear (Clear) Urine pH 5.5 (5.0-8.0) Ur Specific [place] 1.023 (1.001-1.035) Urine Protein 1+ H (Negative) Urine Glucose (UA) Negative (Negative) Urine Ketones 1+ H (Negative) Urine Blood Negative (Negative) Urine Nitrite Negative (Negative) Urine Bilirubin Negative (Negative) Urine Urobilinogen <2.0 (<2.0) mg/dL Ur Leukocyte Esterase Negative (Negative) Urine RBC 1 (0-5) /hpf Urine WBC 1 (0-5) /hpf Ur Squamous Epith Cells <1 (0-4) /hpf Urine Bacteria Rare H (None) /hpf Urine Mucus Rare H (None) /hpf Coronavirus (PCR) (Not Detectd) 10/02/20 10/02/20 Range/Units 14:49 14:49 WBC (3.8-10.6) k/uL RBC (3.80-5.40) m/uL Hgb (11.4-16.0) gm/dL Hct (34.0-46.0) % MCV (80.0-100.0) fL MCH (25.0-35.0) pg MCHC (31.0-37.0) g/dL RDW (11.5-15.5) % Plt Count (150-450) k/uL MPV Neutrophils % % Lymphocytes % % Monocytes % % Eosinophils % % Basophils % % Neutrophils # (1.3-7.7) k/uL Lymphocytes # (1.0-4.8) k/uL Monocytes # (0-1.0) k/uL Eosinophils # (0-0.7) k/uL Basophils # (0-0.2) k/uL Sodium (137-145) mmol/L Potassium (3.5-5.1) mmol/L Chloride (98-107) mmol/L Carbon Dioxide (22-30) mmol/L Anion Gap mmol/L BUN (7-17) mg/dL Creatinine (0.52-1.04) mg/dL Est GFR (CKD-EPI)AfAm (>60 ml/min/1.73 sqM) Est GFR (CKD-EPI)NonAf (>60 ml/min/1.73 sqM) Glucose (74-99) mg/dL Plasma Lactic Acid [place] 1.3 (0.7-2.0) mmol/L Calcium (8.4-10.2) mg/dL Magnesium (1.6-2.3) mg/dL Total Bilirubin (0.2-1.3) mg/dL AST (14-36) U/L ALT (4-34) U/L Alkaline Phosphatase (38-126) U/L Total Protein (6.3-8.2) g/dL Albumin (3.5-5.0) g/dL Urine Color Urine Appearance (Clear) Urine pH (5.0-8.0) Ur Specific [place] (1.001-1.035) Urine Protein (Negative) Urine Glucose (UA) (Negative) Urine Ketones (Negative) Urine Blood (Negative) Urine Nitrite (Negative) Urine Bilirubin (Negative) Urine Urobilinogen (<2.0) mg/dL Ur Leukocyte Esterase (Negative) Urine RBC (0-5) /hpf Urine WBC (0-5) /hpf Ur Squamous Epith Cells (0-4) /hpf Urine Bacteria (None) /hpf Urine Mucus (None) /hpf Coronavirus (PCR) Detected A (Not Detectd) Disposition Clinical Impression: COVID-19 Disposition: HOME SELF-CARE Condition: Good Instructions (If sedation given, give patient instructions): Coronavirus Disease 2019 (COVID-19) Additional Instructions: Please follow-up with your doctor in one to 2 days. Drink plenty of fluids. Return to the emergency room for worsening symptoms. Is patient prescribed a controlled substance at d/c from ED?: No Referrals: Betito Deleon MD [Primary Care Provider] - 1-2 days Time of Disposition: 16:30
--- NOTE | 2020-10-02 16:05 | XR ---
EXAMINATION TYPE: XR chest 2V DATE OF EXAM: 10/02/2020 COMPARISON: 11/21/2017. HISTORY: Weakness. TECHNIQUE: Frontal and lateral views of the chest are obtained. FINDINGS: There is no focal air space opacity, pleural effusion, or pneumothorax seen. The cardiac silhouette size is enlarged. The osseous structures are intact. IMPRESSION: No acute cardiopulmonary process.
[2020-10-02] MEDS ORDERED: POTASSIUM CHLORIDE ER 20 MEQ TAB.ER PO STA (16:28)
[2020-10-02] MEDS ORDERED: SODIUM CHLORIDE 0.9% 50 ML IVPB ONE (16:45)
[2020-10-02] MEDS ORDERED: CASIRIVIMAB (REGN10933) (EUA) 600 MG, IMDEVIMAB (REGN10987) (EUA) 600 MG in SODIUM CHLO... IVPB ONE (17:00)
[2020-10-02 18:38] VITALS: BP 140/77; PULSE 61
== END 2020-10-02 19:17 | disposition home or self-care (01) ==
LOC: SUPCPDRO 13:45 → EC 13:45
DX: U07.1 COVID-19 (principal); E78.5 Hyperlipidemia, unspecified; I10 Essential (primary) hypertension; M19.90 Unspecified osteoarthritis, unspecified site; Z86.718 Personal history of other venous thrombosis and embolism; Z87.891 Personal history of nicotine dependence
CPT/HCPCS: 36415; 71046; 80053; 81001; 83605; 83735; 85025; 87635; 93005; 96365; 99285

== ENCOUNTER → 2021-10-11 | Outpatient (CLI) | payer MEDICARE, BC ==
--- NOTE | 2021-10-11 14:27 | USB ---
Reason for Exam: Clinical finding. Patient History: Menarche at age 14. First Full-Term at age 19. Postmenopausal. Breast cancer, left, age 65. Estrogen for 20 years from age 42 until age 62. Patient used Hormonal Contraceptives for 2 years. 2008, Lumpectomy on the Left side. 2005, Lumpectomy on the Left side. 03/25/2018, Implant on the left side. Prior Study Comparison: 08/27/2017 Bilateral Diagnostic Mammogram, [facility]. 09/18/2017 Right Diagnostic Mammogram, [facility]. Findings: The whole breast of the left breast, the axilla of the left breast and the retroareolar of the left breast were scanned. No solid or cystic masses are identified.. Left breast implant is in place. Overall Assessment: Benign, BI-RAD 2 Management: Diagnostic Mammogram of both breasts in 1 year. A clinical breast exam by your physician is recommended on an annual basis and results should be correlated with mammographic findings. Electronically signed and approved by: Norman Goddard M.D. Radiologis
--- NOTE | 2021-10-13 12:43 | MM ---
Reason for Exam: Additional evaluation requested from prior study. Last mammogram was performed 4 year(s) and 1 month(s) ago. Patient History: Menarche at age 14. First Full-Term at age 19. Postmenopausal. Breast cancer, left, age 65. Estrogen for 20 years from age 42 until age 62. Patient used Hormonal Contraceptives for 2 years. 2008, Lumpectomy on the Left side. 2005, Lumpectomy on the Left side. 03/25/2018, Implant on the left side. Prior Study Comparison: 08/27/2017 Bilateral Diagnostic Mammogram, [facility]. 09/18/2017 Right Diagnostic Mammogram, [facility]. 09/18/2017 Right Diagnostic Ultrasound, [facility]. Tissue Density: The breast tissue is heterogeneously dense. This may lower the sensitivity of mammography. Findings: Analyzed By CAD. Post lumpectomy changes left breast is stable. Implant is noted to be in place left breast. Benign calcifications are seen bilaterally. Overall Assessment: Incomplete: need additional imaging evaluation, BI-RAD 0 Management: Diagnostic Breast Ultrasound of the left breast. A clinical breast exam by your physician is recommended on an annual basis and results should be correlated with mammographic findings. This exam should not preclude additional follow-up of suspicious palpable abnormalities. Results were given to the patient verbally at the time of exam. Electronically signed and approved by: Norman Goddard M.D. Radiologis
== END | disposition home or self-care (01) ==
LOC: RADMAMWWP 13:08
PROVIDERS: ATTEND Family Medicine
DX: R92.8 Other abnormal and inconclusive findings on diagnostic imaging of breast (principal); Z85.3 Personal history of malignant neoplasm of breast; Z78.0 Asymptomatic menopausal state
CPT/HCPCS: 77066; 76641; G0279; 77062

== ENCOUNTER → 2021-10-17 | Outpatient (CLI) | payer MEDICARE, BC ==
--- NOTE | 2021-10-18 09:44 | CA ---
Transthoracic Echo Report Name: Mandie London Age: 81 Gender: F : 1940 Exam Date: 10/17/2021 14:08 Exam Location: [facility] Ht (in): 60 Wt (lb): 182 Ordering Physician: Betito Deleon MD Attending/Referring Phys: HILARIA, Pancho [employer] Driver Salesperson Anne Larry DORI Procedure CPT: Indications: Z85.3 personal hx breast ca Cardiac Hx: Technical Quality: Fair Contrast 1: Total Dose (mL): Contrast 2: Total Dose (mL): MEASUREMENTS (Male / Female) Normal Values 2D ECHO LV Diastolic Diameter PLAX 3.7 cm 4.2 - 5.9 / 3.9 - 5.3 cm LV Systolic Diameter PLAX 2.3 cm IVS Diastolic Thickness 1.0 cm 0.6 - 1.0 / 0.6 - 0.9 cm LVPW Diastolic Thickness 1.2 cm 0.6 - 1.0 / 0.6 - 0.9 cm LV Relative Wall Thickness 0.6 RV Internal Dim ED PLAX 3.0 cm LA Volume 29.3 cm??? 18 - 58 / 22 - 52 cm??? M-MODE Aortic Root Diameter MM 2.7 cm LA Systolic Diameter MM 3.2 cm LA Ao Ratio MM 1.2 AV Cusp Separation MM 1.4 cm DOPPLER AV Peak Velocity 117.9 cm/s AV Peak Gradient 5.6 mmHg LVOT Peak Velocity 92.1 cm/s LVOT Peak Gradient 3.4 mmHg MV Area PHT 5.1 cm??? Mitral E Point Velocity 73.8 cm/s Mitral A Point Velocity 96.5 cm/s Mitral E to A Ratio 0.8 MV Deceleration Time 147.3 ms MV E' Velocity 4.6 cm/s Mitral E to MV E' Ratio 16.0 TR Peak Velocity 254.9 cm/s TR Peak Gradient 26.0 mmHg Right Ventricular Systolic Press 30.9 mmHg FINDINGS Left Ventricle Mildly increased left ventricular wall thickness. Normal left ventricular systolic function with no obvious regional wall motion abnormalities. Left ventricular cavity size normal. Normal left ventricular diastolic filling pattern. Left ventricular ejection fraction is estimated at 55-60 %. Right Ventricle Normal right ventricular size and function. Right ventricular systolic pressure within normal limits. Right Atrium Normal right atrial size. Left Atrium Normal left atrial size. No evidence for an atrial septal defect. Mitral Valve Structurally normal mitral valve. No mitral stenosis, regurgitation or prolapse. Aortic Valve Trileaflet aortic valve. No aortic valve stenosis or regurgitation. Tricuspid Valve Structurally normal tricuspid valve. Mild tricuspid regurgitation. Pulmonic Valve Trace pulmonic regurgitation. Pericardium No pericardial effusion. Aorta Normal size aortic root and proximal ascending aorta. CONCLUSIONS Normal LV size and systolic function with mild concentric LVH. No significant abnormality in the Doppler exam. No pericardial effusion Previewed by: Dr. Lee Ann Desouza MD (Electronically Signed) Final Date: 18 October 2021 09:43
== END | disposition home or self-care (01) ==
LOC: RADECHMAIN 14:01
PROVIDERS: ATTEND Family Medicine
DX: I07.1 Rheumatic tricuspid insufficiency (principal); I10 Essential (primary) hypertension
CPT/HCPCS: 93306

== ENCOUNTER → 2022-09-04 | Outpatient (CLI) | payer MEDICARE ==
--- NOTE | 2022-09-04 21:32 | CT ---
EXAMINATION TYPE: CT left knee - [facility] Protocol DATE OF EXAM: 09/04/2022 COMPARISON: None HISTORY: 82-year-old female M1 7.12, M2 5.562, Left knee radha protocol TECHNIQUE: Contiguous axial scanning of the left knee without IV contrast. Coronal and sagittal recon structions performed. Additional scanning through the pelvis and ankles with coronal and sagittal rec onstructions. CT DLP: 631.10 mGycm Automated exposure control for dose reduction was used. FINDINGS: Imaging was performed for surgical purposes. Uterus anteverted. There is artifact relating to patient 's right hip total arthroplasty. Moderate degenerative change at the left hip. Left knee shows a moderate joint effusion. There is a loose body within the medial gutter of the supr apatellar pouch measuring 1.5 x 0.4 cm. There is tricompartmental osteoarthrosis, advanced in the medial compartment. Both ankle joints are intact. IMPRESSION: IMAGING FOR SURGICAL PLANNING PURPOSES. TRICOMPARTMENTAL OSTEOARTHROSIS LEFT KNEE, ADVANCED IN THE ME DIAL COMPARTMENT. MODERATE KNEE JOINT EFFUSION WITH A 1.5 X 0.4 CM LOOSE BODY IN THE MEDIAL GUTTER OF THE SUPRAPATELLAR POUCH. MODERATE LEFT HIP OA. PREVIOUS RIGHT HIP TOTAL ARTHROPLASTY.
== END | disposition home or self-care (01) ==
LOC: RADCTMAIN 13:02
PROVIDERS: ATTEND Orthopaedic Surgery
DX: M17.12 Unilateral primary osteoarthritis, left knee (principal); M16.12 Unilateral primary osteoarthritis, left hip; Z96.641 Presence of right artificial hip joint; M25.462 Effusion, left knee

== ENCOUNTER → 2022-09-04 | Outpatient (CLI) | payer MEDICARE ==
[2022-09-04 15:13] LABS: INR 0.9 (<1.2); Partial Thromboplastin Time 22.6 sec (22.0-30.0)
[2022-09-04 20:27] LABS: Appearance,Urine Cloudy (Clear); Bilirubin,Urine Negative (Negative); Blood,Urine Negative (Negative); Color,Urine Yellow (Yellow); Ketones,Urine Negative (Negative); Nitrite,Urine Negative (Negative); PH, Urine 5.5; Specific Gravity,Urine 1.021 (1.001-1.030); Urobilinogen,Urine 0.2 E.U./DL
[2022-09-04 20:51] LABS: ALT 22 U/L (8-44); AST 32 U/L (13-35); Albumin 4.2 d/dL (3.8-4.9); Albumin/Globulin Ratio 1.75 Ratio (1.60-3.17); Alkaline Phosphatase 79 U/L (41-126); Blood Urea Nitrogen 18.9 mg/dL (9.0-27.0); Calcium 9.9 mg/dL (8.7-10.3); Carbon Dioxide 27.3 mmol/L (21.6-31.8); Chloride 105 mmol/L (96-109); Globulin 2.4 d/dL (1.6-3.3); Glucose 105 mg/dL (70-110); Potassium 4.3 mmol/L (3.5-5.5); Sodium 145 mmol/L (135-145); Total Bilirubin 0.6 mg/dL (0.3-1.2); Total Protein 6.6 d/dL (6.2-8.2)
[2022-09-04 23:02] LABS: Yeast (UA) Present (None Seen)
[2022-09-04 23:44] LABS: HCT 42.9 % (37.2-46.3); MCHC 32.6 d/dL (32.0-37.0); MCV 94.9 FL (80.0-97.0); Mean Platelet Volume 11.1 FL (9.5-12.2); NRBC Per 100 WBC 0 X 10*3/uL (0.00-0.01); Platelet Count 214 X 10*3/uL (140-440); RBC 4.52 X 10*6/uL (4.10-5.20); RDW 13.7 % (11.5-14.5); WBC 7.68 X 10*3/uL (4.50-10.00)
== END | disposition home or self-care (01) ==
LOC: LABPAT 13:23
PROVIDERS: ATTEND Orthopaedic Surgery
DX: Z01.812 Encounter for preprocedural laboratory examination (principal); M17.12 Unilateral primary osteoarthritis, left knee; R94.31 Abnormal electrocardiogram [ECG] [EKG]
CPT/HCPCS: 80053; 81001; 85027; 85610; 85730; 87070; 93005

== ENCOUNTER 2022-09-06 12:29 | Emergency (ER) | payer MEDICARE ==
[2022-09-06 12:47] VITALS: RESP 18; TEMP 96.6
[2022-09-06] MEDS ORDERED: KETOROLAC 15 MG/ML 1 ML VIAL IM STA (14:08)
--- NOTE | 2022-09-06 14:13 | ED ---
Extremity Problem HPI - General Chief complaint: Extremity Problem,Nontraumatic Stated complaint: Pain in Left Hip Time Seen by Provider: 09/06/22 13:52 Source: patient Mode of arrival: wheelchair Limitations: no limitations - History of Present Illness Initial comments: Nontoxic-appearing 82-year-old female presents to the emergency room with left hip pain for the past few days. States pain is on the left side goes down to the knee. Patient states that she has been seeing Dr. Blanchard for left knee pain for several weeks and is scheduled for surgery on September 28. She did recently have a CT scan 2 days ago of the left knee and hip. She does have history of osteoarthritis. Does not like taking pain medications however did take Motrin with some relief. She states that the pain was worse today and almost called the ambulance but states was able to drive herself to the hospital. She denies any falls. No fevers. No bowel or bladder incontinence. She also has a history of hypertension and osteoarthritis. MD Complaint: joint pain (left hip and left knee) -: days(s) Location: left, lower extremity (hip and knee) History of Same: Yes Severity scale (1-10): 5 Quality: aching Consistency: constant Improves with: immobilization Worsens with: other (getting into bed) Associated Symptoms: denies other symptoms - Related Data Home Medications Medication Instructions Recorded Confirmed Metoprolol Tartrate [Lopressor] 100 mg PO DAILY 09/12/17 08/12/18 Cholecalciferol (Vitamin D3) 2,000 unit PO DAILY 12/20/17 08/12/18 [Vitamin D3] ALPRAZolam [Xanax] 0.5 mg PO HS 08/07/18 08/12/18 Amoxicillin 875 mg PO Q12HR 08/07/18 08/12/18 hydroCHLOROthiazide 25 mg PO DAILY 08/07/18 08/12/18 lisinopriL [Zestril] 20 mg PO DAILY 08/07/18 08/12/18 Previous Rx's Medication Instructions Recorded Hydrocodone/Acetaminophen [[place] 1 tab PO Q4H PRN 7 Days #42 tab NS 08/12/18 5-325] MDD 6 cephALEXin [Keflex] 500 mg PO Q6HR #40 cap 09/02/18 Lidocaine 5% Patch [Lidoderm] 1 each TP 14 #14 patch 09/06/22 Allergies Allergy/AdvReac Type Severity Reaction Status Date / Time adhesive tape AdvReac Unknown Red Verified 09/06/22 12:43 Irritated Skin clindamycin AdvReac Unknown HEART BURN Verified 09/06/22 12:43 erythromycin base AdvReac Unknown HEART BURN Verified 09/06/22 12:43 Review of Systems ROS Statement: Those systems with pertinent positive or pertinent negative responses have been documented in the HPI. ROS Other: All systems not noted in ROS Statement are negative. Past Medical History Past Medical History: Cancer, Deep Vein Thrombosis (DVT), Hyperlipidemia, Hypertension, Osteoarthritis (OA) Additional Past Medical History / Comment(s): HX OF STONE IN PANCREAS, ARTHRITIS WITH BACK PAIN, left BREAST CANCER (2009 WITH PARTIAL MASTECTOMY & RADIATION [place]), STRESS INCONTINENCE- WEARS PADS.,occ irregular heart rate, History of Any Multi-Drug Resistant Organisms: None Reported Past Surgical History: Breast Surgery, Cholecystectomy, Joint Replacement, Tubal Ligation Additional Past Surgical History / Comment(s): LUMPECTOMY X2, PARTIAL LEFT MASTECTOMY, Rt hip replacement, D&C's, rt cataract, reconstruction of breast , Past Anesthesia/Blood Transfusion Reactions: Previous Problems w/ Anesthesia Additional Past Anesthesia/Blood Transfusion Reaction / Comment(s): STATES BLOOD PRESSURE LOW IN RECOVERY ROOM AFTER HIP SURGERY. Past Psychological History: Anxiety Smoking Status: Former smoker Past Alcohol Use History: Occasional Past Drug Use History: None Reported - Past Family History Mother Family Medical History: Cancer Additional Family Medical History / Comment(s): LUNG CANCER Daughter(s) Family Medical History: Pulmonary Embolus General Exam Limitations: no limitations General appearance: alert, in no apparent distress Head exam: Present: atraumatic Eye exam: Present: normal appearance. Absent: scleral icterus, conjunctival injection, periorbital swelling Neck exam: Absent: meningismus Respiratory exam: Absent: respiratory distress, accessory muscle use Cardiovascular Exam: Present: regular rate GI/Abdominal exam: Present: soft Left Hip exam: Present: tenderness. Absent: external rotation, internal rotation, pelvic stability Upper Leg exam: Absent: tenderness Knee exam: Present: tenderness, swelling Back exam: Absent: tenderness, CVA tenderness (R), CVA tenderness (L), muscle spasm, paraspinal tenderness, vertebral tenderness, rash noted Neurological exam: Present: alert, oriented X3 Psychiatric exam: Present: normal affect, normal mood Skin exam: Present: warm, dry, normal color. Absent: cyanosis, diaphoretic, petechiae, pallor Course Vital Signs 09/06/22 09/06/22 12:44 15:22 Temperature 96.6 F L Pulse Rate 63 58 L Respiratory 18 18 Rate Blood Pressure 143/90 159/97 O2 Sat by Pulse 97 98 Oximetry Medical Decision Making - Medical Decision Making Was pt. sent in by a medical professional or institution (DOC Walton, STUDIO ARTIST, urgent care, hospital, or fpc...) When possible be specific @ -No Did you speak to anyone other than the patient for history (EMS, parent, family, police, friend...)? What history was obtained from this source @ -No Did you review nursing and triage notes (agree or disagree)? Why? @ -I reviewed and agree with nursing and triage notes Were old charts reviewed (outside hosp., previous admission, EMS record, old EKG, old radiological studies, urgent care reports/EKG's, fpc records)? Report findings @ -CT September 04 2022 Differential Diagnosis (chest pain, altered mental status, abdominal pain women, abdominal pain men, vaginal bleeding, weakness, fever, dyspnea, syncope, headache, dizziness, GI bleed, back pain, seizure, CVA, palpatations, mental health, musculoskeletal)? @ -Hip fracture, dislocation, arthritis, musculoskeletal pain EKG interpreted by me (3pts min.). @ -n/a X-rays interpreted by me (1pt min.). @ -n/a CT interpreted by me (1pt min.). @ -None done U/S interpreted by me (1pt. min.). @ -None done What testing was considered but not performed or refused? (CT, X-rays, U/S, labs)? Why? @ -XR considered, no fall or trauma, no fevers, CT was performed 2 days prior showing left hip osteoarthritisNone What meds were considered but not given or refused? Why? @ -None Did you discuss the management of the patient with other professionals (professionals i.e. DOC Walton, STUDIO ARTIST, lab, RT, psych nurse, manager social media, beer still runner compounder, teacher, president and chief commercial officer, returned case inspector)? Give summary @ -No Was smoking cessation discussed for >3mins.? @ -No Was critical care preformed (if so, how long)? @ -No Were there social determinants of health that impacted care today? How? (Homelessness, low income, unemployed, alcoholism, drug addiction, transportation, low edu. Level, literacy, decrease access to med. care, group home, rehab)? @ -No Was there de-escalation of care discussed even if they declined (Discuss DNR or withdrawal of care, Hospice)? DNR status @ -No What co-morbidities impacted this encounter? (DM, HTN, Smoking, COPD, CAD, Cancer, CVA, ARF, Chemo, Hep., AIDS, mental health diagnosis, sleep apnea, morbid obesity)? @ Medical history DVT, hypertension, osteoarthritis, hyperlipidemia, cholecystectomy, anxiety Was patient admitted / discharged? Hospital course, mention meds given and route, prescriptions, significant lab abnormalities, going to OR and other pertinent info. @ -Discharged. Nontoxic-appearing 82-year-old female presents to the emergency room with left hip pain for the past few days. States pain is on the left side goes down to the knee. Patient states that she has been seeing Dr. Blanchard for left knee pain for several weeks and is scheduled for surgery on September 28. She did recently have a CT scan 2 days ago of the left knee and hip. She does have history of osteoarthritis. Does not like taking pain medications however did take Motrin with some relief. She states that the pain was worse today and almost called the ambulance but states was able to drive herself to the hospital. She denies any falls. No fevers. No bowel or bladder incontinence. Patient states she did have left hip pain for [address] was performed 2 days ago. Medical records were reviewed including CT ordered by Dr. Blanchard of the left knee performed on 09/04/2022 shows tricompartmental osteoarthrosis left knee, advanced in the medial compartment. Moderate knee joint effusion with a 1.5 x 0.4 cm loose body in the medial gutter of the suprapatellar pouch. Moderate left hip osteoarthritis. Previous right hip total arthroplasty. She has been able to ambulate. No bowel or bladder incontinence. No fevers. No saddle anesthesia. Pain is the left buttock and goes down the lateral side of her left hip to her knee but not past her knee. Patient denies any falls. She did drive herself to the hospital. Patient is to ambulate in the [place]. Patient was given Lidoderm patch and a shot of Toradol today. Tylenol 3 starter pack to take at night for pain. Directed to follow up with Dr. Blanchard. Patient states has an appointment scheduled September 28. Case discussed with Dr. Pollock Undiagnosed new problem with uncertain prognosis? @ -No Drug Therapy requiring intensive monitoring for toxicity (Heparin, Nitro, Insulin, Cardizem)? @ -No Were any procedures done? @ -No Diagnosis/symptom? @ -Left hip pain, osteoarthritis Acute, or Chronic, or Acute on Chronic? @ -Acute on chronic Uncomplicated (without systemic symptoms) or Complicated (systemic symptoms)? @ -Uncomplicated Side effects of treatment? @ -No Exacerbation, Progression, or Severe Exacerbation? @ -No Poses a threat to life or bodily function? How? (Chest pain, [place], [place], pneumonia, PE, COPD, DKA, ARF, appy, cholecystitis, CVA, Diverticulitis, Homicidal, Suicidal, threat to staff... and all critical care pts) @ -No Disposition Clinical Impression: Hip pain, left, Chronic pain of left knee Disposition: HOME SELF-CARE Condition: Good Instructions (If sedation given, give patient instructions): Kegel Exercises for Women (DC), Knee Pain (ED), Hip Pain (ED) Additional Instructions: Take Tylenol and Motrin as needed for pain and discomfort. Use topical pain relievers like icy hot, BenGay or Biofreeze. You can also use Lidoderm patches as prescribed. Use Tylenol 3 at bedtime but do not drive or operate heavy machinery when taking this medication. Follow-up with her orthopedic doctor next week. Return to the emergency room with any new or concerning symptoms including inability to ambulate, bowel or bladder incontinence or fevers. Prescriptions: Lidocaine 5% Patch [Lidoderm] 1 each TP 14 #14 patch Is patient prescribed a controlled substance at d/c from ED?: No Referrals: Betito Deleon MD [Primary Care Provider] - 1-2 days Klaus Blanchard MD [Medical Doctor] - 1-2 days Time of Disposition: 14:33
[2022-09-06] MEDS ORDERED: ACET/COD 300 MG/30 MG STARTER PACK 6 TAB BTL PO STA (14:30)
[2022-09-06] MEDS ORDERED: LIDOCAINE 5% PATCH TOPICAL SCH (15:00)
[2022-09-06 15:24] VITALS: BP 159/97; PULSE 58
== END 2022-09-06 15:34 | disposition home or self-care (01) ==
LOC: EC 12:29
DX: G89.29 Other chronic pain (principal); M25.552 Pain in left hip; I10 Essential (primary) hypertension; E78.5 Hyperlipidemia, unspecified; M19.90 Unspecified osteoarthritis, unspecified site; F41.9 Anxiety disorder, unspecified; Z87.891 Personal history of nicotine dependence; Z79.899 Other long term (current) drug therapy; Z88.8 Allergy status to other drugs, medicaments and biological substances
CPT/HCPCS: 99283; 96372; J1885

== ENCOUNTER → 2022-09-12 | Outpatient (CLI) | payer MEDICARE ==
[2022-09-12 13:07] LABS: African American GFR (CKD) 78 (>60 ml/min/1.73 sqM); Blood Urea Nitrogen 22 mg/dL (7-17); Non-African American GFR(CKD) 67 (>60 ml/min/1.73 sqM)
--- NOTE | 2022-09-12 14:00 | MM ---
Reason for Exam: Follow-up at short interval from prior study. Last screening mammogram was performed 11 month(s) ago. Patient History: Menarche at age 14. First Full-Term at age 19. Postmenopausal. Breast cancer, left, age 65. Previous chest radiation therapy at age 65. Estrogen for 20 years from age 42 until age 62. Patient used Hormonal Contraceptives for 2 years. 2008, Lumpectomy on the Left side. 2005, Lumpectomy on the Left side. 03/25/2018, Implant on the left side. Tissue Density: There are scattered fibroglandular densities. Findings: Analyzed By CAD. There is asymmetry of the breast size implant is present on the left. Findings appear stable. No significant interval change. Benign vascular calcifications on the left. No suspicious groups of microcalcifications, spiculated or lobular masses, architectural distortion or other secondary signs of malignancy are mammographically apparent. Overall Assessment: Benign, BI-RAD 2 Management: Screening Mammogram of both breasts in 1 year. A negative mammogram report should not preclude additional follow up of suspicious palpable abnormalities. Patient should continue monthly self breast exam. A clinical breast exam by your physician is recommended on an annual basis and results should be correlated with mammographic findings. Electronically signed and approved by: Matias Barrientos D.O. Radiologis
--- NOTE | 2022-09-12 14:27 | USB ---
Reason for Exam: Follow-up at short interval from prior study. Patient History: Menarche at age 14. First Full-Term at age 19. Postmenopausal. Breast cancer, left, age 65. Previous chest radiation therapy at age 65. Estrogen for 20 years from age 42 until age 62. Patient used Hormonal Contraceptives for 2 years. 2008, Lumpectomy on the Left side. 2005, Lumpectomy on the Left side. 03/25/2018, Implant on the left side. Technique: Method: Whole Breast Handheld. Patient Position: Supine. Prior Study Comparison: 08/27/2017 Bilateral Diagnostic Mammogram, [facility]. 09/18/2017 Right Diagnostic Mammogram, [facility]. 10/11/2021 Bilateral MG 3D diag mammo w/cad KERRI, [facility]. Findings: The whole breast of the left breast, the axilla of the left breast and the retroareolar of the left breast were scanned. No solid or cystic masses are identified. Overall Assessment: Benign, BI-RAD 2 Management: Screening Mammogram of both breasts in 1 year. A clinical breast exam by your physician is recommended on an annual basis and results should be correlated with mammographic findings. This exam should not preclude additional follow-up of suspicious palpable abnormalities. Results were given to the patient verbally at the time of exam. Electronically signed and approved by: Matias Barrientos D.O. Radiologis
--- NOTE | 2022-09-12 18:54 | CT ---
EXAMINATION TYPE: CT angio chest without and with contrast DATE OF EXAM: 09/12/2022 COMPARISON: Chest radiograph 10/02/2020 HISTORY: 82-year-old female Z85.3, Thoracic aortic aneurysm. TECHNIQUE: Contiguous axial scanning of the chest performed without and with IV Contrast, patient inj ected with 100ml mL of Isovue 370. Coronal/sagittal MIP reconstructions performed. 3-D reconstruction s generated on a dedicated independent workstation. CT DLP: 888.6 mGycm Automated exposure control for dose reduction was used. FINDINGS: There is a left breast reconstruction with implant. Heart borderline enlarged without pericardial effusion. Aortic root normal at 3.3 cm. Ascending aorta is ectatic at 3.8 cm. Proximal arch ectatic at 3.7 cm. Conventional vessel branching anatomy. No evidence for aortic dissection. Borderline ectasia upper descending thoracic aorta 3.0 cm. Mid descending thoracic aorta at 2.5 cm. Aorta at the thoracoabdominal junction is normal at 2.4 cm. 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 Otherwise, visualized upper abdomen shows a 3.8 cm diverticulum of the second portion of the duodenum . Moderate stool burden. Cholecystectomy clips. Prominent right hilar lymph node 1.8 cm. Left hilar lymph node at 1.2 cm. Prevascular node 6 mm. Otherwise, no thoracic lymphadenopathy. There is mild emphysematous changes with biapical pleural parenchymal scarring. A couple scattered ca lcified granulomas. Some subpleural reticulations in the lower lungs suggesting mild interstitial fib rosis. No consolidation or pleural effusion. Bones: Accentuated thoracic kyphosis with anterior endplate spondylosis. IMPRESSION: 1. ECTATIC ASCENDING AORTA 3.8 CM AND BORDERLINE ECTATIC UPPER DESCENDING THORACIC AORTA AT 3.0 CM. 2. BORDERLINE CARDIOMEGALY. 3. MILDLY ENLARGED BILATERAL HILAR LYMPH NODES MEASURING UP TO 1.8 CM. LIKELY REACTIVE/POST INFLAMMAT ORY. RECOMMEND 3-6 MONTH FOLLOW-UP CHEST TO ENSURE STABILITY/RESOLUTION. 4. 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 5. PREVIOUS LEFT BREAST RECONSTRUCTION WITH IMPLANT.
== END | disposition home or self-care (01) ==
LOC: RADCTMAIN 12:17
PROVIDERS: ATTEND Family Medicine
DX: I71.20 Thoracic aortic aneurysm, without rupture, unspecified (principal); J43.9 Emphysema, unspecified; J84.10 Pulmonary fibrosis, unspecified; Z85.3 Personal history of malignant neoplasm of breast; Z78.0 Asymptomatic menopausal state; I51.7 Cardiomegaly; R59.0 Localized enlarged lymph nodes; Z98.82 Breast implant status
CPT/HCPCS: 82565; 84520; 77066; 76641; 71275; G0279; Q9967; 77062

== ENCOUNTER 2022-09-28 09:38 | Observation (INO) | payer MEDICARE ==
[2022-09-20 11:45] VITALS: BMI 36.1
[~2022-09-28 09:38] MED LIST changes: +ACETAMINOPHEN TAB 500 MG TAB PO PRN; -DEXAMETHASONE SOD PHOSPHATE 10 MG/ML 1 ML VIAL IV ONE; +DEXAMETHASONE SOD PHOSPHATE 10 MG/ML 1 ML VIAL IV PRN; +DOCUSATE 100 MG CAP PO PRN; +FAMOTIDINE 20 MG/2 ML VIAL IVP PRN; +KETOROLAC 15 MG/ML 1 ML VIAL IVP PRN; -LACTATED RINGERS 1,000 ML IV SCH; -LIDOCAINE 1% 20 ML VIAL (10MG/ML) FOR IV START INTRADERMA PRN; -MIDAZOLAM 2 MG/2 ML VIAL IV PRN; -ONDANSETRON 4 MG/2 ML VIAL IVP ONE; +ONDANSETRON 4 MG/2 ML VIAL IVP PRN; -Pre Op ABX Message 1 EACH MISC MISCELLANE ONE; -SCOPOLAMINE 1.5MG/72HR PATCH TRANSDERM ONE; +TRANEXAMIC 1,000 MG/100ML-NACL 1,000 MG in SALINE 1 100ML.BAG IV PRN; +TRANEXAMIC 1,000 MG/100ML-NACL 1,000 MG in SALINE 1 100ML.BAG IVPB PRN; +oxyCODONE ER 10 MG TAB.ER.12H PO PRN
[2022-09-28] MEDS ORDERED: DEXAMETHASONE SOD PHOSPHATE 4 MG/ML 1 ML VIAL IV ONE (09:49)
[2022-09-28] MEDS ORDERED: HYDROmorphone 0.5 MG/0.5 ML SYRINGE IVP PRN ×3 (09:49→13:16)
[2022-09-28] MEDS ORDERED: ONDANSETRON 4 MG/2 ML VIAL IVP ONE (09:49)
[2022-09-28] MEDS: LACTATED RINGERS 1,000 ML IV SCH ×2 (09:53→16:23)
[2022-09-28] MEDS ORDERED: MIDAZOLAM 2 MG/2 ML VIAL IVP ONE (10:33)
[2022-09-28] MEDS ORDERED: DEXAMETHASONE SOD PHOSPHATE 4 MG/ML 1 ML VIAL ONE (10:54)
[2022-09-28] MEDS ORDERED: ROPIVACAINE 5 MG/ML 30 ML VIAL ONE (10:54)
[2022-09-28] MEDS ORDERED: PHENYLEPHRINE-0.9% NACL SYG 1,000 MCG/10 ML SYRINGE ONE (10:54)
[2022-09-28] MEDS ORDERED: PROPOFOL 10 MG/ML 20 ML VIAL IV ONE (10:54)
[2022-09-28] MEDS ORDERED: TRANEXAMIC 1,000 MG/100ML-NACL PREMIX BAG ONE (10:54)
[2022-09-28] MEDS ORDERED: ePHEDrine 50 MG/ML 1 ML VIAL ONE (10:54)
[2022-09-28] MEDS: ROPIVACAINE/EPI/CLONIDINE/KET 50 ML SYRINGE MISCELLANE PRN ×2 (11:45→12:22)
[2022-09-28] MEDS ORDERED: LACTATED RINGERS 1,000 ML IV ONE ×2 (12:02)
[2022-09-28] MEDS ORDERED: hydrOXYzine pamoate 25 MG CAP PO PRN (13:16)
[2022-09-28] MEDS ORDERED: NALOXONE 0.4 MG/ML 1 ML VIAL IV PRN (13:16)
[2022-09-28] MEDS ORDERED: ONDANSETRON 4 MG/2 ML VIAL IVP PRN (13:16)
--- NOTE | 2022-09-28 13:16 | P.OP ---
Date of Procedure: 09/28/22 Preoperative Diagnosis: 1. Severe left knee osteoarthritis 2. History of DVT 3. Breast cancer Postoperative Diagnosis: Same Procedure(s) Performed: Left total knee arthroplasty Implants: 1. Geyser Triathlon CR Femur Size #3 2. Ximena Triathlon [place] Tibial Base Size #3 3. Ximena Triathlon CS poly Size #9 4. Ximena Triathlon all poly patella, Size #29 Anesthesia: WILLIAMA, regional Surgeon: Klaus Blanchard Rail Detector Car Operator #1: Nik Anderson Estimated Blood Loss (ml): 50 IV fluids (ml): 800 Pathology: none sent Condition: stable Disposition: PACU Indications for Procedure: I met with the patient preoperatively in the office setting and discussed treatment of their symptomatic knee arthritis. They failed a long course of nonsurgical treatment and elected to proceed with an elective total knee replacement. I discussed the potential risks and complications at length and gave them ample time to ask questions. Risks discussed included: risks from anesthesia, superficial site surgical infection, acute and/or chronic periprosthetic joint infection, delayed wound healing, drainage, wound necrosis, instability, stiffness, stiffness requiring manipulation and/or revision surgery, damage to local blood vessels or nerves, aseptic loosening of the implants, extensor mechanism issues including disruption, patellar maltracking, avascular necrosis etc., continued or worsened knee pain, generalized dissatisfaction with surgical outcome, need for revision surgery, an inability to regain preinjury level of function, DVT, PE, other medical complications, and possibly loss of life or limb. The patient voiced their understanding that while these are the most common complications other less common complications are possible. They provided both their verbal and written consent to go forward with surgery. Operative Findings: Severe tricompartmental knee osteoarthritis Description of Procedure: The patient was identified in preoperative holding and the correct operative extremity was verified and marked with a marker. I reviewed the consent form with the patient at length. All of their questions were answered. The patient was given a block by anesthesia. They were then brought back to the operating room. They were transferred onto the operating room table where a general anesthetic, preoperative antibiotics, and tranexamic acid were administered by anesthesia. A tourniquet was applied to the proximal aspect of the operative extremity. The contralateral extremity was padded under the heel and secured to the operating room table with a nonsterile blue towel and tape. The ipsilateral arm was carefully draped across the patient's chest and secured with a pillow and foam. A post was applied over the lateral aspect of the ipsilateral thigh and a bolster was placed under the ipsilateral foot. I verified that the operative extremity was stable and the knee was flexed to 90. The operative extremity was then placed in a leg oden, nonsterile drapes were applied, and the extremity was prepped and draped sterilely in the standard sterile fashion. Prior to starting surgery timeout was performed identifying the correct patient, operative extremity, and procedure. The leg was then elevated, exsanguinated with an Esmarch bandage, and the tourniquet was inflated. An anterior midline incision was made sharply with a scalpel. Once I had dissected deep to the superficial fascial layer medial and lateral flaps were elevated. A medial parapatellar arthrotomy was created. Upon opening the knee joint there were diffuse arthritic changes in all 3 compartments. The anterior horn of the medial meniscus were sharply released and a medial release was performed around the posterior medial corner of the knee to facilitate retractor placement. The fat pad was excised with electrocautery. The patella was found to be severely arthritic and a provisional cut was made with a sagittal saw to facilitate mobilization of the extensor mechanism during the procedure. Remnants of the ACL and PCL were then excised from the notch. 4 mm pins were then placed within the incision in the medial distal femur and proximal tibia. Arrays were applied to the pins and I verified they were completely tightened. The knee was then registered with the [employer] robot and manipulations in implant position were made to balance the knee and opitmize implant position. Using the Gibran robotic saw all cuts were made in accordance with our plan. After all bony fragments had been removed the cuts were verified with the planar probe. The tibia was then subluxed forward and sized. The knee was brought into flexion and a lamina online merchandising specialist was placed to allow removal of the meniscal remnants both medially and laterally as well as posterior osteophytes. Local anesthetic was then infiltrated around the joint capsule. Trial implants were then placed within the knee. Range of motion and collateral ligament tension was then ev aluated. Adjustments in implant size and position were then made accordingly. Once the knee was felt to be appropriately balanced the Gibran pins were removed. The patella was then recut, sized, and punched. A trial patellar button was then placed. With the trial components in place, the patella tracked midline. The femur was then drilled and the trial component removed. The trial tibial component was then appropriately rotated, pinned, and prepared for the keel. All trial components were then removed from the knee. The knee was thoroughly irrigated with pulsatile lavage. Cement was prepared via vacuum mixing in a bowl on the back table. I then hand pressurized cement into the femur and tibia and placed the implants beginning with the tibial base tray and poly liner, femoral component, and finally the patellar button. All extruded cement was removed including from the pin sites. Once the cement had hardened the knee was evaluated one final time with the final polyethylene liner in place. The knee had full extension and flexion and felt stable to varus and valgus stress throughout the arc of motion. The tourniquet was released and with the tourniquet down the patella tracked midline. All bleeders were controlled with electrocautery. The knee was then soaked for 3 minutes with a dilute Betadine soak. The knee was thoroughly irrigated using 3 L of sterile saline and pulsatile lavage. The extensor mechanism was then reapproximated using pop off Vicryl sutures followed by a running barbed suture. The knee was then closed in layers with a 0 strata fix for the deep fascial layer, 2-0 strata fix for the superficial subcutaneous layer and Monocryl and Steri-Strips for the skin. A sterile dressing was applied. I verified that all instrument, sponge, and sharp counts were correct. The patient was then transferred off the operating room table, extubated, and brought to recovery having tolerated the procedure well. Nik Anderson PA-C was required as a skilled studio assistant due to the complexity of the procedure for patient positioning, draping, retraction, placement of hardware, and closure of wound. PLAN: The patient can weight-bear as tolerated on the operative extremity. DVT prophylaxis with aspirin 81 mg twice a day based on preoperative risk stratification. Follow-up in the office in 2 weeks for wound check and x-rays of the knee including an AP and lateral.
--- NOTE | 2022-09-28 13:40 | XR ---
EXAMINATION TYPE: XR knee limited LT DATE OF EXAM: 09/28/2022 COMPARISON: None HISTORY: Postop left knee TECHNIQUE: 2 view left knee FINDINGS: Femoral and tibial prostheses in place. Postsurgical soft tissue changes are evident. No ac linda fractures are evident. IMPRESSION: 1. No acute fracture post knee replacement
[2022-09-28] MEDS: METOPROLOL TARTRATE 50 MG TAB PO SCH (20:17)
[2022-09-28] MEDS: HYDROcodone/APAP 5-325MG 1 EACH TAB PO PRN (20:17)
[2022-09-28] MEDS: SENNOSIDES-DOCUSATE SODIUM 1 EACH TAB PO SCH (20:17)
[2022-09-28] MEDS: LOSARTAN 50 MG TAB PO SCH (20:17)
[2022-09-28] MEDS: AMITRIPTYLINE HCL 25 MG TAB PO SCH (20:18)
[2022-09-28] MEDS: ZOLPIDEM 5 MG TAB PO SCH (23:23)
[2022-09-29] MEDS: LACTATED RINGERS 1,000 ML IV SCH ×3 (00:20→15:53)
[2022-09-29 07:51] LABS: Basophils # (A) 0.1 k/uL (0-0.2); Basophils % (A) 0 %; Eosinophils # (A) 0.1 k/uL (0-0.7); Eosinophils % (A) 0 %; HCT 42.5 % (34.0-46.0); HGB 14.1 gm/dL (11.4-16.0); Lymphocytes # (A) 1.3 k/uL (1.0-4.8); Lymphocytes % (A) 8 %; MCH 31.4 pg (25.0-35.0); MCHC 33.2 g/dL (31.0-37.0); MCV 94.7 fL (80.0-100.0); Mean Platelet Volume 9.2; Monocytes # (A) 0.9 k/uL (0-1.0); Monocytes % (A) 6 %; Neutrophils # (A) 12.7 k/uL (1.3-7.7); Neutrophils % (A) 84 %; Platelet Count 164 k/uL (150-450); RBC 4.49 m/uL (3.80-5.40); RDW 12.6 % (11.5-15.5); WBC 15.1 k/uL (3.8-10.6)
--- NOTE | 2022-09-29 08:01 | P.PN ---
Subjective Progress Note Date: 09/29/22 Patient is doing well this morning. The pain in her left knee is controlled. Her only complaint is that she has residual numbness and her foot from her spinal anesthetic and nerve block. She is otherwise without complaints. Objective - Vital Signs Vital signs: Vital Signs Temp 97.7 F 09/29/22 06:59 Pulse 56 L 09/29/22 06:59 Resp 16 09/29/22 06:59 BP 148/83 09/29/22 06:59 Pulse Ox 94 L 09/29/22 06:59 FiO2 Intake & Output 09/28/22 09/29/22 09/29/22 18:59 06:59 18:59 Intake Total 1050 Output Total 75 Balance 975 Weight 85 kg Intake: IV 1050 Output: Estimated Blood Loss 75 Other: Voiding Method Bedpan Incontinent # Voids 1 3 - Exam The patient is resting comfortably in her bed. She is alert and able to answer questions. A focused exam of the left leg was conducted. On inspection there is a clean-appearing dressing over the anterior aspect of her knee. Her thigh and calf are soft. She is able to actively plantarflex and dorsiflex her ankles and her toes. Sensation is intact to light touch throughout the foot, but it is slightly diminished secondary to her spinal and nerve block. - Labs CBC & Chem 7: 09/29/22 06:46 Labs: Abnormal Lab Results - Last 24 Hours (Table) 09/29/22 Range/Units 06:46 WBC 15.1 H (3.8-10.6) k/uL Neutrophils # 12.7 H (1.3-7.7) k/uL Assessment and Plan Assessment: Postoperative day #1 status post left total knee replacement, doing well Plan: 1. Weightbearing as tolerated left lower extremity, operative Asst. 2. 2 doses postoperative antibiotics 3. DVT prophylaxis with aspirin 81 mg twice a day 4 weeks 4. Internal medicine for perioperative medical management 5. Physical therapy for gait training 6. DISPO: The patient lives alone and would like to transfer to rehab. Social work and physical therapy have been consulted. Discharge planning is in process.
[2022-09-29] MEDS: CHOLECALCIFEROL 25 MCG (1000 IU) TABLET PO SCH (08:41)
[2022-09-29] MEDS: RIVAROXABAN 10 MG TAB PO SCH (08:41)
[2022-09-29] MEDS: LIDOCAINE 5% PATCH TOPICAL SCH (08:47)
[2022-09-29] MEDS: HYDROcodone/APAP 5-325MG 1 EACH TAB PO PRN ×2 (08:48→16:27)
--- NOTE | 2022-09-29 08:53 | P.CONS ---
History of Present Illness - Reason for Consult Consult date: 09/28/22 Medical management - Chief Complaint Severe left knee osteoarthritis - History of Present Illness 82-year-old female patient with history of hypertension, DVT, breast cancer and severe osteoarthritis of left knee, admitted to the hospital for elective treatment of severe osteoarthritis; They failed a long course of nonsurgical treatment and elected to proceed with an elective total knee replacement. -- Patient is status post left total knee arthroplasty, POD #0; hospital medicine service is consulted for medical management Review of Systems REVIEW OF SYSTEMS: CONSTITUTIONAL: No fever, no malaise, no fatigue. HEENT: No recent visual problems or hearing problems. Denied any sore throat. CARDIOVASCULAR: No chest pain, orthopnea, PND, no palpitations, no syncope. PULMONARY: No shortness of breath, no cough, no hemoptysis. GASTROINTESTINAL: No diarrhea, no nausea, no vomiting, no abdominal pain. NEUROLOGICAL: No headaches, no weakness, no numbness. HEMATOLOGICAL: Denies any bleeding or petechiae. GENITOURINARY: Denies any burning micturition, frequency, or urgency. MUSCULOSKELETAL/RHEUMATOLOGICAL: Denies any joint pain, swelling, or any muscle pain. ENDOCRINE: Denies any polyuria or polydipsia. The rest of the 14-point review of systems is negative. Past Medical History Past Medical History: Cancer, Deep Vein Thrombosis (DVT), Hypertension, Osteoarthritis (OA) Additional Past Medical History / Comment(s): HX OF STONE IN PANCREAS, ARTHRITIS WITH BACK PAIN, left BREAST CANCER (2008 WITH PARTIAL MASTECTOMY & RADIATION [place]), STRESS INCONTINENCE- WEARS PADS.,occ irregular heart rate, DVT after breast reconstruction History of Any Multi-Drug Resistant Organisms: None Reported Past Surgical History: Breast Surgery, Cholecystectomy, Joint Replacement, Tubal Ligation Additional Past Surgical History / Comment(s): LUMPECTOMY X2, PARTIAL LEFT MASTECTOMY, Rt hip replacement, D&C's, rt cataract, reconstruction of breast, colonoscopy. Past Anesthesia/Blood Transfusion Reactions: Previous Problems w/ Anesthesia Additional Past Anesthesia/Blood Transfusion Reaction / Comm: STATES BLOOD PRESSURE LOW IN RECOVERY ROOM AFTER HIP SURGERY. Smoking Status: Never smoker - Past Family History Mother Family Medical History: Cancer Additional Family Medical History / Comment(s): LUNG CANCER Daughter(s) Family Medical History: Pulmonary Embolus Medications and Allergies Home Medications Medication Instructions Recorded Confirmed Type Metoprolol Tartrate [Lopressor] 100 mg PO HS 09/12/17 09/28/22 History Cholecalciferol (Vitamin D3) 2,000 unit PO DAILY 12/20/17 09/28/22 History [Vitamin D3] Lidocaine 5% Patch [Lidoderm] 1 each TP 14 #14 patch 09/06/22 09/28/22 Rx Amitriptyline HCl 25 mg PO HS 09/20/22 09/28/22 History Irbesartan [Avapro] 150 mg PO HS 09/20/22 09/28/22 History Zolpidem [Ambien] 5 mg PO HS 09/20/22 09/28/22 History Docusate [Colace] 100 mg PO BID #60 capsule 09/28/22 Rx HYDROcodone/APAP 5-325MG [[place] 1 - 2 tab PO Q6HR PRN 7 Days #32 09/28/22 Rx 5-325] tab Omeprazole 40 mg PO DAILY 30 Days #30 cap 09/28/22 Rx Rivaroxaban [Xarelto] 10 mg PO DAILY 30 Days #30 tab 09/28/22 Rx Allergies Allergy/AdvReac Type Severity Reaction Status Date / Time adhesive tape AdvReac Unknown Red Verified 09/28/22 10:14 Irritated Skin clindamycin AdvReac Unknown HEART BURN Verified 09/28/22 10:14 erythromycin base AdvReac Unknown HEART BURN Verified 09/28/22 10:14 Physical Exam Vitals: Vital Signs Temp Pulse Resp BP Pulse Ox 09/28/22 19:08 97.6 F 60 16 146/78 98 09/28/22 15:50 52 L 14 136/74 100 09/28/22 15:20 56 L 14 129/77 97 09/28/22 14:37 58 L 14 119/73 95 09/28/22 14:08 58 L 14 113/68 95 09/28/22 13:53 92 14 111/64 95 09/28/22 13:38 54 L 12 110/63 100 09/28/22 13:23 56 L 12 104/59 99 09/28/22 13:09 97.0 F L 55 L 12 101/59 99 09/28/22 10:40 61 16 149/79 95 09/28/22 10:10 98 F 62 16 183/98 99 Intake and Output 0709/28/22 09/28/22 06:59 14:59 22:59 Intake Total 1050 Output Total 75 Balance 975 Intake: IV 1050 Output: Estimated Blood Loss 75 Other: # Voids 1 Weight 85 kg 85 kg PHYSICAL EXAMINATION: GENERAL: The patient is alert and oriented x3, not in any acute distress. Well developed, well nourished. HEENT: Pupils are round and equally reacting to light. EOMI. No scleral icterus. No conjunctival pallor. Normocephalic, atraumatic. No pharyngeal erythema. No thyromegaly. CARDIOVASCULAR: S1 and S2 present. No murmurs, rubs, or gallops. PULMONARY: Chest is clear to auscultation, no wheezing or crackles. ABDOMEN: Soft, nontender, nondistended, normoactive bowel sounds. No palpable organomegaly. MUSCULOSKELETAL: No joint swelling or deformity. EXTREMITIES: No cyanosis, clubbing, or pedal edema. NEUROLOGICAL: Gross neurological examination did not reveal any focal deficits. SKIN: No rashes. Results CBC & Chem 7: 09/29/22 06:46 Assessment and Plan Assessment: 1. Severe left knee osteoarthritis - Patient is status post left total knee arthroplasty; POD #0 - Patient to have weightbearing on left lower extremity as tolerated - Orthopedic surgery recommending to continue with aspirin 81 mg twice a day for 4 weeks for DVT prophylaxis - PT/OT consult 2. Hypertension; Avapro 150 mg daily; metoprolol 100 mg daily 3. Vitamin D deficiency . Vitamin D3 2000 units daily 4. Neuropathy; Continue with home dose of amitriptyline 25 mg daily at bedtime 5. Insomnia/sleep disorder; Ambien 5 mg by mouth daily at bedtime DVT prophylaxis; SCDs/aspirin CODE STATUS; full code
--- NOTE | 2022-09-29 19:52 | P.ANPRN ---
Procedure Note - Anesthesia - Nerve Block Performed Left Adductor Canal Single Time Out Performed: Yes Date of Procedure: 09/28/22 Procedure Start Time: 10:32 Procedure Stop Time: 10:35 Location of Patient: PreOp Indication: Acute Post-Operative Pain, Requested by Surgeon Sedation Type: Sedate with meaningful contact maintained Preparation: Sterile Prep Position: Supine Needle Types: Pajunk Needle Gauge: 21 Ultrasound used to visualize needle placement: Yes Ultrasound used to observe medication spread: Yes Blood Aspirated: No Pain Paresthesia on Injection Noted: No Resistance on Injection: Normal Image Stored and Saved: Yes Events: Uneventful and Well Tolerated (Ropivacaine 0.5% 20 mL plus dexamethasone 4 mg)
--- NOTE | 2022-09-29 19:53 | P.ANPRN ---
Procedure Note - Anesthesia - Nerve Block Performed Left iPack Single Time Out Performed: Yes Date of Procedure: 09/28/22 Procedure Start Time: 10:36 Procedure Stop Time: 10:38 Location of Patient: PreOp ([facility]) Indication: Acute Post-Operative Pain, Requested by Surgeon Sedation Type: Sedate with meaningful contact maintained Preparation: Sterile Prep Position: Supine Needle Types: [place]ajunk Needle Gauge: 21 Ultrasound used to visualize needle placement: Yes Ultrasound used to observe medication spread: Yes Blood Aspirated: No Pain Paresthesia on Injection Noted: No Resistance on Injection: Normal Image Stored and Saved: Yes Events: Uneventful and Well Tolerated (Ropivacaine 0.5% 20 mL plus dexamethasone 4 mg)
[2022-09-29] MEDS: METOPROLOL TARTRATE 50 MG TAB PO SCH (21:38)
[2022-09-29] MEDS: AMITRIPTYLINE HCL 25 MG TAB PO SCH (21:38)
[2022-09-29] MEDS: ZOLPIDEM 5 MG TAB PO SCH (21:38)
[2022-09-29] MEDS: SENNOSIDES-DOCUSATE SODIUM 1 EACH TAB PO SCH (21:38)
[2022-09-29] MEDS: LOSARTAN 50 MG TAB PO SCH (21:38)
[2022-09-30] MEDS: LACTATED RINGERS 1,000 ML IV SCH ×3 (01:46→13:19)
[2022-09-30] MEDS: HYDROcodone/APAP 5-325MG 1 EACH TAB PO PRN ×3 (05:05→21:35)
--- NOTE | 2022-09-30 07:21 | P.PN ---
Subjective Progress Note Date: 09/30/22 Patient has increased pain in her left knee this morning since her block has worn off, but is comfortable with her pain medications. She has no other complaints. Objective - Vital Signs Vital signs: Vital Signs Temp 98.4 F 09/30/22 02:26 Pulse 57 L 09/30/22 02:26 Resp 16 09/30/22 02:26 BP 127/79 09/30/22 02:26 Pulse Ox 94 L 09/30/22 02:26 FiO2 Intake & Output 09/29/22 09/30/22 09/30/22 18:59 06:59 18:59 Other: Voiding Method Toilet Toilet Bedpan Bedpan # Voids 2 1 - Exam Patient is resting comfortably in her bed. She is alert and able to answer questions. Focused exam of the left lower extremity was conducted. On inspection there is a clean dressing with no drainage or strike through. Her thigh and calf are soft. There is mild swelling throughout the thigh and calf. Motor and sensory function are intact throughout the left leg. - Labs CBC & Chem 7: 09/29/22 06:46 Labs: Abnormal Lab Results - Last 24 Hours (Table) 09/29/22 Range/Units 06:46 WBC 15.1 H (3.8-10.6) k/uL Neutrophils # 12.7 H (1.3-7.7) k/uL Assessment and Plan Assessment: Postoperative day #2 status post left total knee replacement, doing well Plan: Treatment as outlined yesterday. Physical therapy recommended short-term nursing facility following discharge. Discharge planning is in process and the patient will hopefully have arrangements made by tomorrow.
[2022-09-30] MEDS: LIDOCAINE 5% PATCH TOPICAL SCH (08:23)
[2022-09-30] MEDS: CHOLECALCIFEROL 25 MCG (1000 IU) TABLET PO SCH (08:23)
[2022-09-30] MEDS: RIVAROXABAN 10 MG TAB PO SCH (08:23)
[2022-09-30] MEDS: HYDROmorphone 0.5 MG/0.5 ML SYRINGE IVP PRN ×2 (08:24→16:29)
[2022-09-30 09:33] LABS: Basophils # (A) 0.05 X 10*3/uL (0.00-0.10); Basophils % (A) 0.5 %; Eosinophils # (A) 0.19 X 10*3/uL (0.04-0.35); Eosinophils % (A) 1.7 %; HCT 37.8 % (37.2-46.3); HGB 12.4 d/dL (12.0-15.0); Lymphocytes # (A) 3.04 X 10*3/uL (0.90-5.00); Lymphocytes % (A) 27.9 %; MCH 30.8 pg (27.0-32.0); MCHC 32.8 d/dL (32.0-37.0); Mean Platelet Volume 11.5 FL (9.5-12.2); Monocytes # (A) 0.94 X 10*3/uL (0.20-1.00); Monocytes % (A) 8.6 %; NRBC Per 100 WBC 0 X 10*3/uL (0.00-0.01); Neutrophils # (A) 6.64 X 10*3/uL (1.80-7.70); Neutrophils % (A) 60.9 %; Platelet Count 183 X 10*3/uL (140-440); RBC 4.02 X 10*6/uL (4.10-5.20); RDW 13.3 % (11.5-14.5)
[2022-09-30 09:53] LABS: BUN/Creat Ratio 25.12 Ratio (12.00-20.00); Blood Urea Nitrogen 20.1 mg/dL (9.0-27.0); Calcium 8.7 mg/dL (8.7-10.3); Carbon Dioxide 22.9 mmol/L (21.6-31.8); Chloride 107 mmol/L (96-109); Glucose 98 mg/dL (70-110); Potassium 3.9 mmol/L (3.5-5.5); Sodium 140 mmol/L (135-145)
--- NOTE | 2022-09-30 11:13 | P.PN ---
Subjective Progress Note Date: 09/29/22 82-year-old female patient with history of hypertension, DVT, breast cancer and severe osteoarthritis of left knee, admitted to the hospital for elective treatment of severe osteoarthritis; They failed a long course of nonsurgical treatment and elected to proceed with an elective total knee replacement. -- Patient is status post left total knee arthroplasty, POD #0; hospital medicine service is consulted for medical management 09/29/2022 Patient is seen and evaluated in room at bedside; reports improved pain control; concerned about some is likely symptoms are reviewed and stable; pulse 56, respirations 16 and blood pressure 148/83 Labs are reviewed WBC of 15.1, hemoglobin 14.1 and platelet count 64; slight leukocytosis likely reactive; patient did receive prophylactic antibiotics postoperatively - Orthopedic surgery recommending to continue with aspirin 81 mg twice a day for 4 weeks for DVT prophylaxis; patient has as tolerated on left lower extremity - PT on board for decreasing and recommending skilled rehab; social service has been consulted Objective - Vital Signs Vital signs: Vital Signs Temp 98.0 F 09/30/22 06:59 Pulse 59 L 09/30/22 06:59 Resp 16 09/30/22 06:59 BP 118/75 09/30/22 06:59 Pulse Ox 93 L 09/30/22 06:59 FiO2 Intake & Output 09/29/22 09/30/22 09/30/22 18:59 06:59 18:59 Other: Voiding Method Toilet Toilet Toilet Bedpan Bedpan Bedpan # Voids 2 1 1 - Exam GENERAL: The patient is alert and oriented x3, not in any acute distress. Well developed, well nourished. HEENT: Pupils are round and equally reacting to light. EOMI. No scleral icterus. No conjunctival pallor. Normocephalic, atraumatic. No pharyngeal erythema. No thyromegaly. CARDIOVASCULAR: S1 and S2 present. No murmurs, rubs, or gallops. PULMONARY: Chest is clear to auscultation, no wheezing or crackles. ABDOMEN: Soft, nontender, nondistended, normoactive bowel sounds. No palpable organomegaly. MUSCULOSKELETAL: No joint swelling or deformity. EXTREMITIES: No cyanosis, clubbing, or pedal edema. NEUROLOGICAL: Gross neurological examination did not reveal any focal deficits. SKIN: No rashes. - Labs CBC & Chem 7: 09/30/22 06:21 07 06:21 Labs: Abnormal Lab Results - Last 24 Hours (Table) 09/30/22 09/30/22 Range/Units 06:21 06:21 WBC 10.90 H (4.50-10.00) X 10*3/uL RBC 4.02 L (4.10-5.20) X 10*6/uL BUN/Creatinine Ratio 25.12 H (12.00-20.00) Ratio Assessment and Plan Assessment: 1. Severe left knee osteoarthritis - Patient is status post left total knee arthroplasty; POD #0 - Patient to have weightbearing on left lower extremity as tolerated - Orthopedic surgery recommending to continue with aspirin 81 mg twice a day for 4 weeks for DVT prophylaxis - PT/OT consult 2. Hypertension; Avapro 150 mg daily; metoprolol 100 mg daily 3. Vitamin D deficiency . Vitamin D3 2000 units daily 4. Neuropathy; Continue with home dose of amitriptyline 25 mg daily at bedtime 5. Insomnia/sleep disorder; Ambien 5 mg by mouth daily at bedtime DVT prophylaxis; SCDs/aspirin CODE STATUS; full code
--- NOTE | 2022-09-30 18:04 | P.PN ---
Subjective Progress Note Date: 09/30/22 82-year-old female patient with history of hypertension, DVT, breast cancer and severe osteoarthritis of left knee, admitted to the hospital for elective treatment of severe osteoarthritis; They failed a long course of nonsurgical treatment and elected to proceed with an elective total knee replacement. -- Patient is status post left total knee arthroplasty, POD #0; hospital medicine service is consulted for medical management 09/29/2022 Patient is seen and evaluated in room at bedside; reports improved pain control; concerned about some is likely symptoms are reviewed and stable; pulse 56, respirations 16 and blood pressure 148/83 Labs are reviewed WBC of 15.1, hemoglobin 14.1 and platelet count 64; slight leukocytosis likely reactive; patient did receive prophylactic antibiotics postoperatively - Orthopedic surgery recommending to continue with aspirin 81 mg twice a day for 4 weeks for DVT prophylaxis; patient has as tolerated on left lower extremity - PT on board for decreasing and recommending skilled rehab; social service has been consulted 09/30/2022 Patient is seen and evaluated resting in bed; reports she wasn't able to work [employer] physical therapy due to feeling tired today Vital signs are reviewed and remained stable with temperature of 98 pulse 60. Respirations 16 and blood pressure 136/82, O2 saturation of 97% on room air White blood count trended down from 15.1 yesterday down to 10.9; likely stress related; no signs of infection - Patient to be discharged to skilled rehab once arrangements are made Objective - Vital Signs Vital signs: Vital Signs Temp 98.0 F 09/30/22 06:59 Pulse 59 L 09/30/22 06:59 Resp 16 09/30/22 06:59 BP 118/75 09/30/22 06:59 Pulse Ox 93 L 09/30/22 06:59 FiO2 Intake & Output 09/29/22 09/30/22 09/30/22 18:59 06:59 18:59 Other: Voiding Method Toilet Toilet Toilet Bedpan Bedpan Bedpan # Voids 2 1 1 - Exam GENERAL: The patient is alert and oriented x3, not in any acute distress. Well developed, well nourished. HEENT: Pupils are round and equally reacting to light. EOMI. No scleral icterus. No conjunctival pallor. Normocephalic, atraumatic. No pharyngeal erythema. No thyromegaly. CARDIOVASCULAR: S1 and S2 present. No murmurs, rubs, or gallops. PULMONARY: Chest is clear to auscultation, no wheezing or crackles. ABDOMEN: Soft, nontender, nondistended, normoactive bowel sounds. No palpable organomegaly. MUSCULOSKELETAL: No joint swelling or deformity. EXTREMITIES: No cyanosis, clubbing, or pedal edema. NEUROLOGICAL: Gross neurological examination did not reveal any focal deficits. SKIN: No rashes. - Labs CBC & Chem 7: 09/30/22 06:21 09/30/22 06:21 Labs: Abnormal Lab Results - Last 24 Hours (Table) 09/30/22 09/30/22 Range/Units 06:21 06:21 WBC 10.90 H (4.50-10.00) X 10*3/uL RBC 4.02 L (4.10-5.20) X 10*6/uL BUN/Creatinine Ratio 25.12 H (12.00-20.00) Ratio Assessment and Plan Assessment: 1. Severe left knee osteoarthritis - Patient is status post left total knee arthroplasty; POD #0 - Patient to have weightbearing on left lower extremity as tolerated - Orthopedic surgery recommending to continue with aspirin 81 mg twice a day for 4 weeks for DVT prophylaxis - PT/OT consult 2. Hypertension; Avapro 150 mg daily; metoprolol 100 mg daily 3. Vitamin D deficiency . Vitamin D3 2000 units daily 4. Neuropathy; Continue with home dose of amitriptyline 25 mg daily at bedtime 5. Insomnia/sleep disorder; Ambien 5 mg by mouth daily at bedtime DVT prophylaxis; SCDs/aspirin CODE STATUS; full code
[2022-09-30] MEDS: AMITRIPTYLINE HCL 25 MG TAB PO SCH (21:35)
[2022-09-30] MEDS: LOSARTAN 50 MG TAB PO SCH (21:35)
[2022-09-30] MEDS: ZOLPIDEM 5 MG TAB PO SCH (21:35)
[2022-09-30] MEDS: SENNOSIDES-DOCUSATE SODIUM 1 EACH TAB PO SCH (21:35)
[2022-09-30] MEDS: METOPROLOL TARTRATE 50 MG TAB PO SCH (21:35)
[2022-10-01] MEDS: HYDROcodone/APAP 5-325MG 1 EACH TAB PO PRN ×2 (06:41→12:40)
[2022-10-01] MEDS: LIDOCAINE 5% PATCH TOPICAL SCH (08:18)
[2022-10-01] MEDS: RIVAROXABAN 10 MG TAB PO SCH (08:18)
[2022-10-01] MEDS: CHOLECALCIFEROL 25 MCG (1000 IU) TABLET PO SCH (08:18)
--- NOTE | 2022-10-01 08:36 | P.DS ---
Providers Date of admission: 10/01/22 07:34 Expected date of discharge: 10/01/22 Attending physician: Klaus Blanchard Consults: 09/28/22 13:16 Consult Physician Routine Consulting Provider: Sherif Ferraro Consult Reason/Comments: medical management Do you want consulting provider notified?: Yes Primary care physician: Betito Deleon [facility] Course: This is an 82-year-old female who has been followed in our office by Dr. Blanchard for continued complaints of left knee pain due to left knee osteoarthritis. Treatment options were discussed, and patient elected to undergo a left total knee arthroplasty. Patient was seen pre-operatively by Dr. Deleon and cleared for surgery. Patient underwent a left total knee arthroplasty on 09/28/[address] Blanchard. The procedure was performed without complication or sequelae. The patient is doing fairly well postoperatively. Vital signs and labs are stable on postoperative day #3. Patient was examined bedside this morning with Dr. Blanchard. She is up to the bedside chair. Patient states her pain is manageable at this time. She is planning to discharge to rehab. No new complaints today. On examination, the patient is sitting up in the bedside chair in no apparent distress. She is alert and orientated 3. On inspection of the left knee, there is a clean, dry, intact surgical dressing in place. Patient has good strength and ROM of the left ankle and toes. Motor and sensory function is intact of the left lower extremity. The dorsalis pedis pulse is easily palpable, the left lower extremity is warm and well perfused with brisk capillary refill. Calf is soft and non-tender to palpation. Patient is discharged to rehab in good condition, pending medical clearance. Patient will follow-up in the office at [facility] in two weeks. Please see med rec for accurate list of discharge medication. Plan - Discharge Summary Discharge Rx Participant: Yes New Discharge Prescriptions: New Docusate [Colace] 100 mg PO BID #60 capsule HYDROcodone/APAP 5-325MG [[place] 5-325] 1 - 2 tab PO Q6HR PRN 7 Days #32 tab PRN Reason: Pain Rivaroxaban [Xarelto] 10 mg PO DAILY 30 Days #30 tab RX: Omeprazole 40 mg PO DAILY 30 Days #30 cap No Action Metoprolol Tartrate [Lopressor] 100 mg PO HS Cholecalciferol (Vitamin D3) [Vitamin D3] 2,000 unit PO DAILY Lidocaine 5% Patch [Lidoderm] 1 each TP 14 #14 patch Zolpidem [Ambien] 5 mg PO HS Irbesartan [Avapro] 150 mg PO HS RX: Amitriptyline HCl 25 mg PO HS Discharge Medication List Metoprolol Tartrate [Lopressor] 100 mg PO HS 09/12/17 [History] Cholecalciferol (Vitamin D3) [Vitamin D3] 2,000 unit PO DAILY 12/20/17 [History] Lidocaine 5% Patch [Lidoderm] 1 each TP 14 #14 patch 09/06/22 [Rx] Irbesartan [Avapro] 150 mg PO HS 09/20/22 [History] RX: Amitriptyline HCl 25 mg PO HS 09/20/22 [History] Zolpidem [Ambien] 5 mg PO HS 09/20/22 [History] Docusate [Colace] 100 mg PO BID #60 capsule 09/28/22 [Rx] HYDROcodone/APAP 5-325MG [[place] 5-325] 1 - 2 tab PO Q6HR PRN 7 Days #32 tab 09/28/22 [Rx] RX: Omeprazole 40 mg PO DAILY 30 Days #30 cap 09/28/22 [Rx] Rivaroxaban [Xarelto] 10 mg PO DAILY 30 Days #30 tab 09/28/22 [Rx] Follow up Appointment(s)/Referral(s): Residential Home,[facility] [NON-STAFF] - 1-2 Days Klaus Blanchard MD [Medical Doctor] - 2 Weeks Activity/Diet/Wound Care/Special Instructions: Weight bear to tolerance on operative extremity with a walker. Keep operative dressing in place until follow-up in the office. Call the office if dressing becomes saturated or falls off. May shower over dressing. Take pain medication as prescribed. Take Xarelto for blood clot prevention due to history of DVT. Follow-up in the office at [facility] in two weeks. Call the office with any questions or concerns,
[2022-10-01 09:29] LABS: Basophils # (A) 0.02 X 10*3/uL (0.00-0.10); Basophils % (A) 0.2 %; Eosinophils # (A) 0.41 X 10*3/uL (0.04-0.35); Eosinophils % (A) 4.7 %; HCT 40.4 % (37.2-46.3); HGB 13.3 d/dL (12.0-15.0); Lymphocytes # (A) 2.71 X 10*3/uL (0.90-5.00); Lymphocytes % (A) 30.9 %; MCH 31.3 pg (27.0-32.0); MCHC 32.9 d/dL (32.0-37.0); MCV 95.1 FL (80.0-97.0); Mean Platelet Volume 11.3 FL (9.5-12.2); Monocytes # (A) 1.12 X 10*3/uL (0.20-1.00); Monocytes % (A) 12.8 %; NRBC Per 100 WBC 0 X 10*3/uL (0.00-0.01); Neutrophils # (A) 4.48 X 10*3/uL (1.80-7.70); Neutrophils % (A) 51.1 %; Platelet Count 188 X 10*3/uL (140-440); RBC 4.25 X 10*6/uL (4.10-5.20); RDW 13.5 % (11.5-14.5); WBC 8.77 X 10*3/uL (4.50-10.00)
[2022-10-01] MEDS: LACTATED RINGERS 1,000 ML IV SCH ×2 (10:17→10:34)
--- NOTE | 2022-10-01 13:50 | P.PN ---
Subjective Progress Note Date: 10/01/22 82-year-old female patient with history of hypertension, DVT, breast cancer and severe osteoarthritis of left knee, admitted to the hospital for elective treatment of severe osteoarthritis; They failed a long course of nonsurgical treatment and elected to proceed with an elective total knee replacement. -- Patient is status post left total knee arthroplasty, POD #0; hospital medicine service is consulted for medical management 09/29/2022 Patient is seen and evaluated in room at bedside; reports improved pain control; concerned about some is likely symptoms are reviewed and stable; pulse 56, respirations 16 and blood pressure 148/83 Labs are reviewed WBC of 15.1, hemoglobin 14.1 and platelet count 64; slight leukocytosis likely reactive; patient did receive prophylactic antibiotics postoperatively - Orthopedic surgery recommending to continue with aspirin 81 mg twice a day for 4 weeks for DVT prophylaxis; patient has as tolerated on left lower extremity - PT on board for decreasing and recommending skilled rehab; social service has been consulted 09/30/2022 Patient is seen and evaluated resting in bed; reports she wasn't able to work with physical therapy due to feeling tired today Vital signs are reviewed and remained stable with temperature of 98 pulse 60. Respirations 16 and blood pressure 136/82, O2 saturation of 97% on room air White blood count trended down from 15.1 yesterday down to 10.9; likely stress related; no signs of infection - Patient to be discharged to skilled rehab once arrangements are made 10/01. Patient seen and examined. No acute issues overnight. States left knee pain has improved REVIEW OF SYSTEMS: CONSTITUTIONAL: No fever, no malaise,. CARDIOVASCULAR: No chest pain, no palpitations, no syncope. PULMONARY: No shortness of breath, no cough, GASTROINTESTINAL: No diarrhea, no nausea, no vomiting, no abdominal pain. NEUROLOGICAL: No headaches, no weakness, PHYSICAL EXAMINATION: GENERAL: The patient is alert and oriented x3, not in any acute distress. Well developed, well nourished. HEENT: Pupils are round and equally reacting to light. EOMI. No scleral icterus. No conjunctival pallor. Normocephalic, atraumatic. No pharyngeal erythema. No thyromegaly. CARDIOVASCULAR: S1 and S2 present. No murmurs, rubs, or gallops. PULMONARY: Chest is clear to auscultation, no wheezing or crackles. ABDOMEN: Soft, nontender, nondistended, normoactive bowel sounds. No palpable organomegaly. MUSCULOSKELETAL: No joint swelling or deformity. Left Knee surgical incision se en EXTREMITIES: No cyanosis, clubbing, or pedal edema. NEUROLOGICAL: Gross neurological examination did not reveal any focal deficits. SKIN: No rashes. Assessment and plan 1. Severe left knee osteoarthritis - Patient is status post left total knee arthroplasty; POD #1 - Patient to have weightbearing on left lower extremity as tolerated - Orthopedic surgery recommending to continue with aspirin 81 mg twice a day for 4 weeks for DVT prophylaxis - PT/OT consult 2. Hypertension; Avapro 150 mg daily; metoprolol 100 mg daily 3. Vitamin D deficiency . Vitamin D3 2000 units daily 4. Neuropathy; Continue with home dose of amitriptyline 25 mg daily at bedtime 5. Insomnia/sleep disorder; Ambien 5 mg by mouth daily at bedtime Labs and medication were reviewed.. Continue same treatment. Continue with symptomatic treatment. Resume home medication. Monitor labs and vitals. DVT and GI prophylaxis. Further recommendations as per clinical course of the patient Objective - Vital Signs Vital signs: Vital Signs Temp 98.9 F 10/01/22 08:00 Pulse 65 10/01/22 08:00 Resp 16 10/01/22 08:00 BP 129/78 10/01/22 08:00 Pulse Ox 94 L 10/01/22 08:00 FiO2 Intake & Output 09/30/22 10/01/22 10/01/22 18:59 06:59 18:59 Other: Voiding Method Toilet Bedpan # Voids 1 1 - Labs CBC & Chem 7: 10/01/22 05:17 09/30/22 06:21 Labs: Abnormal Lab Results - Last 24 Hours (Table) 10/01/22 Range/Units 05:17 Monocytes # 1.12 H (0.20-1.00) X 10*3/uL Eosinophils # 0.41 H (0.04-0.35) X 10*3/uL
[2022-10-01 15:31] VITALS: BP 128/84; PULSE 57; RESP 18; TEMP 97.9
== END 2022-10-01 16:48 ==
LOC: OR 09:38 → 4SSUR 13:09 → OR 10-01 07:34
PROVIDERS: ADMIT Orthopaedic Surgery; ATTEND Orthopaedic Surgery
DX: M17.12 Unilateral primary osteoarthritis, left knee (principal); I10 Essential (primary) hypertension; R51.9 Headache, unspecified; F32.A Depression, unspecified; R26.81 Unsteadiness on feet; Z86.718 Personal history of other venous thrombosis and embolism; Z85.3 Personal history of malignant neoplasm of breast; Z79.899 Other long term (current) drug therapy; Z88.1 Allergy status to other antibiotic agents; Z91.09 Other allergy status, other than to drugs and biological substances; Z96.641 Presence of right artificial hip joint; Z98.51 Tubal ligation status; Z90.49 Acquired absence of other specified parts of digestive tract; Z90.10 Acquired absence of unspecified breast and nipple; Z98.890 Other specified postprocedural states; Z82.49 Family history of ischemic heart disease and other diseases of the circulatory system; Z87.891 Personal history of nicotine dependence
CPT/HCPCS: 97530; 97162; 97166; 64447; 64999; 85025 ×2; 73560; 27447; G0378; C1776; C1713; C1751; J2250; J1100 ×2; J0690; J2405; J2795; J1885; J2370; J2704; J1170

== ENCOUNTER 2023-01-03 16:08 | Emergency (ER) | payer MEDICARE ==
--- NOTE | 2023-01-03 16:26 | ED ---
General Adult HPI - General Source: patient Mode of arrival: ambulatory <Cruz Hemphill - Last Filed: 01/03/23 16:26> - General Source: patient, RN notes reviewed Mode of arrival: ambulatory Limitations: no limitations <Yaron Barreto - Last Filed: 01/03/23 18:41> - General Chief complaint: Extremity Injury, Upper Stated complaint: fell- hands hurting Time Seen by Provider: 01/03/23 16:26 - History of Present Illness Initial comments: 82 year old Female presented to the ED with a chief complaint hand pain. Patient states earlier today at approximately 1 PM lost her balance and fell forward. States that she was able to catch herself with both her hands. Didn't hit her head reports no LOC. No blood thinners. No baby aspirin use. Now reports pain of her bilateral hands. (Cruz Hemphill) Patient is a pleasant 82-year-old female presenting to the emergency department following a fall. Incident occurred prior to arrival. Patient states she did have knee replacement several months ago and believes that led to her fall. Patient landed on her hands. Patient is having discomfort mostly of her left third and fourth finger. Patient states he may have slightly bumped her head. No loss of consciousness. No blood thinners. No headache. No confusion or weakness or visual problems. (Yaron Barreto) - Related Data Home Medications Medication Instructions Recorded Confirmed Metoprolol Tartrate [Lopressor] 100 mg PO HS 09/12/17 09/28/22 Cholecalciferol (Vitamin D3) 2,000 unit PO DAILY 12/20/17 09/28/22 [Vitamin D3] Amitriptyline HCl 25 mg PO HS 09/20/22 09/28/22 Irbesartan [Avapro] 150 mg PO HS 09/20/22 09/28/22 Previous Rx's Medication Instructions Recorded Lidocaine 5% Patch [Lidoderm 5% 1 each TP 14 #14 patch 09/06/22 Patch] Docusate [Colace] 100 mg PO BID #60 capsule 09/28/22 HYDROcodone/APAP 5-325MG [[place] 1 - 2 tab PO Q6HR PRN 7 Days #32 09/28/22 5-325] tab Omeprazole 40 mg PO DAILY 30 Days #30 cap 09/28/22 Rivaroxaban [Xarelto] 10 mg PO DAILY 30 Days #30 tab 09/28/22 Zolpidem [Ambien] 5 mg PO HS #3 tab 10/01/22 Allergies Allergy/AdvReac Type Severity Reaction Status Date / Time adhesive tape AdvReac Unknown Red Verified 01/03/23 16:22 Irritated Skin clindamycin AdvReac Unknown HEART BURN Verified 01/03/23 16:22 erythromycin base AdvReac Unknown HEART BURN Verified 01/03/23 16:22 Review of Systems ROS Other: All systems not noted in ROS Statement are negative. <Cruz Hemphill - Last Filed: 01/03/23 16:26> ROS Other: All systems not noted in ROS Statement are negative. Constitutional: Denies: fever Eyes: Denies: eye pain ENT: Denies: ear pain Cardiovascular: Denies: chest pain Musculoskeletal: Reports: as per HPI Neurological: Denies: headache, weakness, confusion <Yaron Barreto - Last Filed: 01/03/23 18:41> ROS Statement: Those systems with pertinent positive or pertinent negative responses have been documented in the HPI. Past Medical History Past Medical History: Cancer, Deep Vein Thrombosis (DVT), Hyperlipidemia, Hypertension, Osteoarthritis (OA) Additional Past Medical History / Comment(s): HX OF STONE IN PANCREAS, ARTHRITIS WITH BACK PAIN, left BREAST CANCER (2008 WITH PARTIAL MASTECTOMY & RADIATION [place]), STRESS INCONTINENCE- WEARS PADS.,occ irregular heart rate, History of Any Multi-Drug Resistant Organisms: None Reported Past Surgical History: Breast Surgery, Cholecystectomy, Joint Replacement, Tubal Ligation Additional Past Surgical History / Comment(s): LUMPECTOMY X2, PARTIAL LEFT MASTECTOMY, Rt hip replacement, D&C's, rt cataract, reconstruction of breast , Past Anesthesia/Blood Transfusion Reactions: Previous Problems w/ Anesthesia Additional Past Anesthesia/Blood Transfusion Reaction / Comment(s): STATES BLOOD PRESSURE LOW IN RECOVERY ROOM AFTER HIP SURGERY. Past Psychological History: Anxiety Smoking Status: Never smoker - Past Family History Mother Family Medical History: Cancer Additional Family Medical History / Comment(s): LUNG CANCER Daughter(s) Family Medical History: Pulmonary Embolus <Cruz Hemphill - Last Filed: 01/03/23 16:26> General Exam Limitations: no limitations General appearance: alert Extremities exam: Present: normal inspection Back exam: Present: normal inspection Neurological exam: Present: alert <Cruz Hemphill - Last Filed: 01/03/23 16:26> Limitations: no limitations General appearance: alert, in no apparent distress Head exam: Present: atraumatic Eye exam: Present: normal appearance, PERRL, EOMI ENT exam: Present: normal oropharynx Neck exam: Present: normal inspection. Absent: tenderness Respiratory exam: Present: normal lung sounds bilaterally Cardiovascular Exam: Present: regular rate, normal rhythm GI/Abdominal exam: Present: soft. Absent: tenderness Extremities exam: Present: other (Mild tenderness left third and fourth fingers, diffuse. Full range of motion. Distal extremity are neurovascularly intact.) Neurological exam: Present: alert. Absent: motor sensory deficit Psychiatric exam: Present: normal affect, normal mood Skin exam: Present: normal color <Yaron Barreto - Last Filed: 01/03/23 18:41> Course Vital Signs 01/03/23 16:19 Temperature 97.9 F Pulse Rate 76 Respiratory 18 Rate Blood Pressure 158/98 O2 Sat by Pulse 95 Oximetry Medical Decision Making <Cruz Hemphill - Last Filed: 01/03/23 16:26> <Yaron Barreto - Last Filed: 01/03/23 18:41> - Medical Decision Making Quicknote portion performed. Signed Cruz Hemphill PA-C (Cruz Hemphill) Was pt. sent in by a medical professional or institution ([facility], SOCIAL SCIENCE MANAGER, urgent care, hospital, or prison...) When possible be specific @ -No Did you speak to anyone other than the patient for history (EMS, parent, family, police, friend...)? What history was obtained from this source @ -No Did you review nursing and triage notes (agree or disagree)? Why? @ -I reviewed and agree with nursing and triage notes Were old charts reviewed (outside hosp., previous admission, EMS record, old EKG, old radiological studies, urgent care reports/EKG's, prison records)? Report findings @ -No old charts were reviewed Differential Diagnosis (chest pain, altered mental status, abdominal pain women, abdominal pain men, vaginal bleeding, weakness, fever, dyspnea, syncope, h eadache, dizziness, GI bleed, back pain, seizure, CVA, palpatations, mental health, musculoskeletal)? @ -Differential Musculoskeletal Muscular strain, contusion, ligament sprain, fracture, arthritis, septic arthritis, bursitis, cellulitis, muscle spasm, nerve compression, DVT, arterial occlusion, herpes zoster, electrolyte abnormality, tumor.... This is not meant to be in all inclusive list EKG interpreted by me (3pts min.). @ -As above X-rays interpreted by me (1pt min.). @ -X-ray bilateral hands so no evidence of fracture CT interpreted by me (1pt min.). @ -None done U/S interpreted by me (1pt. min.). @ -None done What testing was considered but not performed or refused? (CT, X-rays, U/S, labs)? Why? @ -Patient did strike her head however is on no blood thinners, no headache, no neurological symptoms. No loss of consciousness. No confusion. No vomiting. No visual changes. Patient does require head CT. What meds were considered but not given or refused? Why? @ -None Did you discuss the management of the patient with other professionals (professionals i.e. , PA, SOCIAL SCIENCE MANAGER, lab, RT, psych nurse, social media assistant, associate brand manager, teacher, employee service officer, supportive employment case manager)? Give summary @ -No Was smoking cessation discussed for >3mins.? @ -No Was critical care preformed (if so, how long)? @ -No Were there social determinants of health that impacted care today? How? (Homelessness, low income, unemployed, alcoholism, drug addiction, transportation, low edu. Level, literacy, decrease access to med. care, residential, rehab)? @ -No Was there de-escalation of care discussed even if they declined (Discuss DNR or withdrawal of care, Hospice)? DNR status @ -No What co-morbidities impacted this encounter? (DM, HTN, Smoking, COPD, CAD, Cancer, CVA, ARF, Chemo, Hep., AIDS, mental health diagnosis, sleep apnea, morbid obesity)? @ -None Was patient admitted / discharged? Hospital course, mention meds given and route, prescriptions, significant lab abnormalities, going to OR and other pertinent info. @ -Patient updated on results and need for follow-up. Patient was advised take off her ring which she did do. Undiagnosed new problem with uncertain prognosis? @ -No Drug Therapy requiring intensive monitoring for toxicity (Heparin, Nitro, Insulin, Cardizem)? @ -No Were any procedures done? @ -Finger splints placed left third and fourth digits by myself without problem . Diagnosis/symptom? @ -Left hand sprain Acute, or Chronic, or Acute on Chronic? @ -Acute Uncomplicated (without systemic symptoms) or Complicated (systemic symptoms)? @ -default Side effects of treatment? @ -No Exacerbation, Progression, or Severe Exacerbation? @ -No Poses a threat to life or bodily function? How? (Chest pain, [place], [place], pneumonia, PE, COPD, DKA, ARF, appy, cholecystitis, CVA, Diverticulitis, Homicidal, Suicidal, threat to staff... and all critical care pts) @ -No (Yaron Barreto) Disposition <Cruz Hemphill - Last Filed: 01/03/23 16:26> Is patient prescribed a controlled substance at d/c from ED?: No Time of Disposition: 18:41 <Yaron Barreto - Last Filed: 01/03/23 18:41> Clinical Impression: Minor head injury, Hand sprain Disposition: HOME SELF-CARE Condition: Stable Instructions (If sedation given, give patient instructions): Hand Sprain (ED) Additional Instructions: Ice to affected area. [id number] Tylenol or Motrin as needed. Use splints as needed. Return for increased pain, swelling, worsening or changing symptoms or any other concerns. Please follow-up with primary care physician. Referrals: Betito Deleon MD [Primary Care Provider] - 1-2 days
--- NOTE | 2023-01-03 17:34 | XR ---
EXAMINATION TYPE: XR hand complete bilateral DATE OF EXAM: 01/03/2023 COMPARISON: NONE HISTORY: 82 year-old female FOOSH, bilateral hand pain and swelling TECHNIQUE: 3 views each side FINDINGS: Left: A ring on the second and fourth digits. Some faint TFC and synovial calcifications are noted at the w rist. No acute fracture, subluxation, dislocation seen. Right: Faint TFC and synovial calcifications of the wrist. No acute fracture, subluxation, or dislocation is seen. IMPRESSION: No acute osseous abnormality seen on either side.
[2023-01-03 18:59] VITALS: BP 166/89; PULSE 63; RESP 16; TEMP 98.4
== END 2023-01-03 18:56 | disposition home or self-care (01) ==
LOC: EC 16:08
DX: S63.92XA Sprain of unspecified part of left wrist and hand, initial encounter (principal); S09.90XA Unspecified injury of head, initial encounter; I10 Essential (primary) hypertension; F41.9 Anxiety disorder, unspecified; Z79.899 Other long term (current) drug therapy; Z88.1 Allergy status to other antibiotic agents; Z91.09 Other allergy status, other than to drugs and biological substances; W19.XXXA Unspecified fall, initial encounter
CPT/HCPCS: 99283

== ENCOUNTER → 2023-03-08 | Outpatient (CLI) | payer MEDICARE ==
--- NOTE | 2023-03-08 15:46 | US ---
EXAMINATION TYPE: US transvaginal DATE OF EXAM: 03/08/2023 COMPARISON: NONE CLINICAL INDICATION: Female, 82 years old with history of N93.9 ABNORMAL UTERINE AND VAGINAL BLEEDING ; Pt. states 3 weeks ago she had two days of seeing pink with wiping after using the restroom TECHNIQUE: Transvaginal (TV). Transvaginal sonographic images were medically necessary to better a ssess the following anatomy: Date of LMP: post-nia EXAM MEASUREMENTS: Uterus: 5.1x2.8x3.7 cm Endometrial Stripe: 0.4 Right Ovary: obscured by bowel Left Ovary: obscured by bowel 1. Uterus: Anteverted 2. Endometrium: Atrophic with within normal limits for size. 3. Right Ovary: Obscured by overlying bowel gas 4. Left Ovary: Obscured by overlying bowel gas 5. Bilateral Adnexa: dilated venous vessels noted at left adnexa 6. Posterior cul-de-sac: wnl exam limited by overlying bowel IMPRESSION: 1. Endometrium within normal limits for thickness. 2. No evidence for acute process.
== END | disposition home or self-care (01) ==
LOC: RADUSWWP 14:00
PROVIDERS: ATTEND Family Medicine
DX: N93.9 Abnormal uterine and vaginal bleeding, unspecified (principal)
CPT/HCPCS: 76830

== ENCOUNTER → 2023-08-22 | Outpatient (CLI) | payer MEDICARE ==
--- NOTE | 2023-08-23 12:57 | CA ---
Transthoracic Echo Report Name: Mandie London Age: 83 Gender: F : 1940 Exam Date: 08/22/2023 13:35 Exam Location: [place] [facility] Ht (in): 60 Wt (lb): 184 Ordering Physician: Betito Deleon MD Attending/Referring Phys: Katay Hopkins [facility] Artist Agent Layne Chatterjee RDCS Procedure CPT: Indications: R01.1 CARDIAC MURMUR, UNSPECIFIED Cardiac Hx: Technical Quality: Good Contrast 1: Total Dose (mL): Contrast 2: Total Dose (mL): MEASUREMENTS (Male / Female) Normal Values 2D ECHO LV Diastolic Diameter PLAX 3.9 cm 4.2 - 5.9 / 3.9 - 5.3 cm LV Systolic Diameter PLAX 2.6 cm IVS Diastolic Thickness 1.0 cm 0.6 - 1.0 / 0.6 - 0.9 cm LVPW Diastolic Thickness 1.0 cm 0.6 - 1.0 / 0.6 - 0.9 cm LV Relative Wall Thickness 0.5 RV Internal Dim ED PLAX 3.0 cm LA Systolic Diameter LX 3.3 cm 3.0 - 4.0 / 2.7 - 3.8 cm LV Diastolic Volume MOD 4C 56.6 cm??? LV Systolic Volume MOD 4C 24.6 cm??? LV Ejection Fraction MOD 4C 56.5 % LV Cardiac Index MOD 4C 1765.5 cm???/min???m??? LV Diastolic Length 4C 7.2 cm LV Systolic Length 4C 5.8 cm LV Diastolic Volume MOD 2C 64.1 cm??? LV Systolic Volume MOD 2C 32.3 cm??? LV Ejection Fraction MOD 2C 49.6 % LV Cardiac Index MOD 2C 1754.2 cm???/min???m??? LV Diastolic Length 2C 7.1 cm LV Systolic Length 2C 5.7 cm LA Volume 35.3 cm??? 18 - 58 / 22 - 52 cm??? LA Volume Index 18.4 cm???/m??? 16 - 28 cm???/m??? M-MODE Aortic Root Diameter MM 3.2 cm MV E Point Septal Separation 0.3 cm AV Cusp Separation MM 1.6 cm DOPPLER AV Peak Velocity 119.5 cm/s AV Peak Gradient 5.7 mmHg MV Area PHT 2.6 cm??? Mitral E Point Velocity 61.5 cm/s Mitral A Point Velocity 82.6 cm/s Mitral E to A Ratio 0.7 MV Deceleration Time 295.2 ms TR Peak Velocity 255.3 cm/s TR Peak Gradient 26.1 mmHg Right Ventricular Systolic Press 30.4 mmHg FINDINGS Left Ventricle Left ventricular ejection fraction is estimated at55-60 %. Left ventricular cavity size normal. Mildly increased septal wall thickness. Mildly increased posterior wall thickness. Normal left ventricular wall motion. Right Ventricle Normal right ventricular size and function. Right ventricular systolic pressure within normal limits. Right Atrium Normal right atrial size. No right atrial thrombus or mass seen. Left Atrium Normal left atrial size. No left atrial thrombus or mass present. Mitral Valve Structurally normal mitral valve. Trace to mild mitral regurgitation. No evidence for mitral valve prolapse. No mitral stenosis. Aortic Valve Trileaflet aortic valve. No aortic valve stenosis or regurgitation. Tricuspid Valve Structurally normal tricuspid valve. Mild tricuspid regurgitation. Pulmonic Valve Structurally normal pulmonic valve. Trace pulmonic regurgitation. Pericardium No pericardial or pleural effusion. Aorta Normal size aortic root and proximal ascending aorta. CONCLUSIONS Normal LV size and systolic function. Mild concentric LVH. Mild mitral and tricuspid regurgitation. No pericardial effusion. No significant pulmonary hypertension Previewed by: Dr. Lee Ann Desouza MD (Electronically Signed) Final Date: 23 Aug 2023 12:56
== END | disposition home or self-care (01) ==
LOC: RADECHMAIN 13:19
PROVIDERS: ATTEND Family Medicine
DX: I34.0 Nonrheumatic mitral (valve) insufficiency (principal); I36.1 Nonrheumatic tricuspid (valve) insufficiency; I51.7 Cardiomegaly; R01.1 Cardiac murmur, unspecified
CPT/HCPCS: 93306

== ENCOUNTER → 2023-09-17 | Outpatient (CLI) | payer MEDICARE ==
--- NOTE | 2023-09-18 08:07 | MM ---
Reason for Exam: Screening (asymptomatic). Last screening mammogram was performed 12 month(s) ago. Patient History: Menarche at age 14. First Full-Term at age 19. Postmenopausal. Breast cancer, left, age 65. Previous chest radiation therapy at age 65. Estrogen for 20 years from age 42 until age 62. Patient used Hormonal Contraceptives for 2 years. 2008, Lumpectomy on the Left side. 2005, Lumpectomy on the Left side. 03/25/2018, Implant on the left side. Prior Study Comparison: 09/18/2017 Right Diagnostic Mammogram, [facility]. 10/11/2021 Bilateral MG 3D diag mammo w/cad [facility], [facility]. 09/12/2022 Bilateral MG 3D diag mammo w/cad [facility], [facility]. Tissue Density: There are scattered areas of fibroglandular density. Findings: Analyzed By CAD. There is no suspicious group of microcalcifications. Distortion left breast compatible with prior lumpectomy change. Left-sided implants appears to be in place. No right breast masses or distortion seen. Overall Assessment: Benign, BI-RAD 2 Management: Screening Mammogram of both breasts in 1 year. . Patient should continue monthly self-breast exams. A clinical breast exam by your physician is recommended on an annual basis. This exam should not preclude additional follow-up of suspicious palpable abnormalities. Note on Debora scores and lifetime risk: 1. A Debora score greater than 3% is considered moderate risk. If this is the case, consider specialist referral to assess eligibility for a risk reducing agent. 2. If overall lifetime risk for the development of breast cancer is 20% or higher, the patient may qualify for future screening with alternating mammogram and breast MRI. Electronically signed and approved by: Norman Goddard M.D. Radiologis
== END | disposition home or self-care (01) ==
LOC: RADMAMWWP 09:17
PROVIDERS: ATTEND Family Medicine
DX: Z12.31 Encounter for screening mammogram for malignant neoplasm of breast (principal); R06.09 Other forms of dyspnea; Z78.0 Asymptomatic menopausal state
CPT/HCPCS: 77063; 77067

== ENCOUNTER → 2023-09-17 | Outpatient (CLI) | payer MEDICARE ==
--- NOTE | 2023-09-17 10:22 | XR ---
EXAMINATION TYPE: XR chest 2V DATE OF EXAM: 09/17/2023 COMPARISON: 10/02/2020 HISTORY: Shortness of breath TECHNIQUE: Frontal and lateral views of the chest are obtained. FINDINGS: Scattered senescent parenchymal changes noted. Hyperinflation compatible with COPD. No evidence for infiltrate. No evidence for atelectasis. Heart size is stable. Mediastinal structures are stable and grossly unremarkable. No evidence for hilar prominence. Degenerative changes dorsal spine. IMPRESSION: 1. No evidence for acute pulmonary disease.
== END | disposition home or self-care (01) ==
LOC: RADXRMAIN 09:29
PROVIDERS: ATTEND Family Medicine
DX: R06.09 Other forms of dyspnea (principal)
CPT/HCPCS: 71046

== ENCOUNTER → 2024-02-18 | Outpatient (CLI) | payer MEDICARE ==
--- NOTE | 2024-02-18 17:36 | BD ---
EXAMINATION TYPE: Axial Bone Density DATE OF EXAM: 02/18/2024 CLINICAL HISTORY: 83 years old Female. ICD-10 CODE: Z78.0 MENOPAUSAL STATE , Additional History: Height: 60 Weight: 192.0 FRAX RISK QUESTIONS: Alcohol (3 or more units per day): no Family History (Parent hip fracture): no Glucocorticoids (More than 3mos): no (Ex: prednisone, prednisolone, methylprednisolone, dexamethasone, and hydrocortisone). History of Fracture in Adulthood: yes Secondary Osteoporosis: 1. Type 1 Diabetes: no 2. Hyperthyroidism: no 3. Menopause before 45: yes 4. Malnutrition: no 5. Chronic liver disease: no Rheumatoid Arthritis: no Current Tobacco Use: no RISK FACTORS HISTORY OF: History of Wrist Fracture: left When: 15 years ago Surgery to Spine/Hip(right/left)/Wrist (right/left): right hip When: long time ago EXAM MEASUREMENTS: Bone mineral densitometry was performed using the [employer] System. Bone mineral density as measured about the Lumbar spine is: ----- L1-L4(G/cm2): 1.196 T Score Values are as follows: ----- L1: -0.6 ----- L2: -0.5 ----- L3: 0.1 ----- L4: 1.0 ----- L1-L4: 0.1 Z Score Values are as follows: ----- L1: 0.6 ----- L2: 0.7 ----- L3: 1.3 ----- L4: 2.2 ----- L1-L4: 1.3 Bone mineral density : baseline Bone mineral density about the L hip (g/cm2): 0.865 T Score values are as follows: -----L Neck: 1.8 -----L Total: -1.1 Z Score values are as follows: -----L Neck: 0.0 -----L Total: 0.5 Bone mineral density : baseline FRAX%s: The graph provided illustrates a 19.6% chance for a major osteoporotic fx and a 5.0% chance f or the hips probability for fx in 10 years time. IMPRESSION: Osteopenia (T Score between -2.5 and -1). There is slightly increased risk of fracture and the patient may be considered for treatment. Re-Screen 2-5 years. NOTE: T-SCORE=SD OF THE YOUNG ADULT MEAN. [facility], , 02/18/2024 5:33 PM
== END | disposition home or self-care (01) ==
LOC: RADBDWWP 14:43
PROVIDERS: ATTEND Family Medicine
DX: M85.89 Other specified disorders of bone density and structure, multiple sites (principal); Z78.0 Asymptomatic menopausal state
CPT/HCPCS: 77080